=== PATIENT | female | born 1960 | race Caucasian/White ===

== ENCOUNTER 2016-10-14 13:21 | Emergency (ER) | payer OTHER ==
[~2016-10-14] VITALS: Ht 160 cm; Wt 52.2 kg
--- NOTE | ~2016-10-14 | EKG ---
[place] [address] [employer] [place] [address] ELECTROCARDIOGRAM REPORT Name: NITZA GRAY Room #: DEP SHILO Yuen#: [id number] Admission: 10/14/16 Attend Phys: Discharge: 10/14/16 Date of : 62 Report #: [id number] THIS REPORT FOR: //name// [facility] ED Test Date: 2016-10-14 Test Time: 13:59:43 Pat Name: NITZA GRAY Department: Room: Gender: F Type Photography Supervisor: MZOOK : 1960 Requested By: Jose Carlos Rao Order Number: [id number] MD: Bill Will Measurements Intervals [place] Rate: 110 P: 68 HI: 121 QRS: -47 QRSD: 79 T: 80 QT: 356 QTc: 482 Interpretive Statements Sinus tachycardia Left anterior fascicular block Possible inferior infarct, old Compared to ECG 06/29/2016 13:44:42 No significant change was found Electronically Signed On 10-15-2016 8:55:49 STAFF REPORTER by Bill Will [email or web address] <ELECTRONICALLY SIGNED> By: Bill Will MD, [facility] 10/15/16 0855 1359 1359 Bill Will MD, FAC /EPI
[~2016-10-14 13:21] MED LIST: ABILIFY 5 MG TAB5 M1 PO; ADVAIR 250-501 EACH IH; ALBUTEROL INH; ALPRAZOLAM 0.0.25 M1 PO; ATIVAN1 MG PO; BACTRIM DS TAB1 EACH PO; BUSPAR 5 MG TABL5 M1 PO; BUTALB-ACETAMI1 EACH PO; CARAFATE 1 GM TA1 G1 PO; CLONAZEPAM; CLONAZEPAM 0.50.5 M1 PO; COMBIVENT INH; CONSTULOSE10 GM/152 PO; DEPAKOTE; DEPAKOTE 250MG250 M1 PO; DEPAKOTE ER500 MG PO; DESYREL100 MG PO; DESYREL150 MG; DESYREL150 MG PO; DIAZEPAM 5 MG5 M1 PO; DICLOFENAC SODI75 M2 PO; FIORICET-COD 31 EACH; FLAGYL500 MG PO; FOLIC ACID1 MG PO; HCTZ PO; HYDROCHLOROTHIA25 M1 PO; HYDROCODON-ACE1 EACH PO; IBUPROFEN 600600 M1 PO; K-DUR 20 MEQ T20 MEQ PO; LACTULOSE10 GM/152 PO; LEG-GESIC MULT473 ML; LIDODERM 5%1 PATCH TOP; LISINOPRIL20 MG PO; LOPRESSOR25 PO; LORAZEPAM 1 MG T1 MG PO; MAG-OX 400 TAB400 M1 PO; MAGNESIUM OXID200 MG PO; MOTION RELIEF25 MG PO; MULTIVITAMINS PO; NOHOMEMEDICATIONS; NON-ASPIRIN PA325 MG PO; NORCO 5-325 TA1 EACH PO; PAIN & FEVER325 MG PO; PHENERGAN 25 MG25 M1 PO; POTASSIUM20 PO; PRENATAL VITAM1 EACH PO; PRILOSEC 10MG C10 MG PO; PRILOSEC 20 MG20 MG PO; PRILOSEC40 MG PO; PRISTIQ100 MG PO; PROPRANOLOL 1010 MG PO; PT UNSURE OF MEDS; REMERON15 MG PO; RISPERIDONE 1 MG1 MG PO; TRAZODONE HCL100 MG PO; TRAZODONE HCL50 MG PO; TRAZODONE PO; VITAMIN B-1100 M1 PO; XANAX 0.25 MG0.25 MG; ZANTAC 150MG T150 M1 PO; ZOFRAN 4 MG ORAL4 MG PO; ZOFRAN ODT4 MG PO
[2016-10-14 14:11] LABS: ABSOLUTE NEUTROPHILS 2.4 thou/uL (1.4-8.2); BASOPHILS 0.9 % (0.0-2.0); EOSINOPHILS 1.5 % (0.0-3.0); HEMATOCRIT 43.3 % (37.0-47.0); HEMOGLOBIN 14.8 gm/dL (12.0-15.0); LYMPHOCYTES 51.7 % (24.0-44.0); MCH 32.6 pg (26.0-34.0); MCHC 34.2 % (28.0-37.0); MCV 95.3 fL (80.0-100.0); MONOCYTES 3.6 % (1.0-8.0); PLATELET COUNT 274 thou/uL (150-400); POLYS 42.3 % (36.0-66.0); RBC 4.55 mil/uL (4.20-5.00); RDW 14.3 % (10.5-14.5); WBC 5.8 thou/uL (4.0-11.0)
[2016-10-14 14:13] LABS: MANUAL DIFF NO
[2016-10-14 14:17] LABS: URINE BILIRUBIN NEGATIVE (Negative); URINE BLOOD TRACE (Negative); URINE COLOR YELLOW; URINE GLUCOSE-RANDOM* NEGATIVE (Negative); URINE KETONES NEGATIVE (Negative); URINE LEUKOCYTES-REFLEX 1+ (Negative); URINE PROTEIN (DIPSTICK) NEGATIVE (Negative); URINE UROBILINOGEN 0.2 E.U./dl (0.2-1.0)
[2016-10-14 14:20] LABS: CREATININE 0.5 mg/dL (0.6-1.3); POTASSIUM 3.2 mmol/L (3.5-5.1)
[2016-10-14 14:22] LABS: INR 1.1; PROTIME 11.4 Seconds (9.3-11.4)
[2016-10-14 14:25] LABS: AMP/METHAMP Negative (Negative); BARBITURATES Negative (Negative); BENZODIAZEPINES Negative (Negative); COCAINE Negative (Negative); METHADONE Negative (Negative); OPIATES Negative (Negative); PCP Negative (Negative); THC POSITIVE (Negative)
[2016-10-14 14:26] LABS: ALBUMIN 2.6 g/dL (3.4-5.0); TOTAL BILIRUBIN 0.2 mg/dL (<0.1-1.0); TOTAL PROTEIN 7.2 g/dL (6.4-8.2)
[2016-10-14 14:47] LABS: CASTS None Seen /LPF (None Seen); CRYSTALS None Seen /LPF (None Seen); SQUAMOUS 0-3 Few /LPF (0-3); URINE WBC-REFLEX 0-5 Rare /HPF (0-5)
[2016-10-14 14:48] LABS: URINE RBC None Seen /HPF (0-2)
[2016-10-14] MEDS ORDERED: PHENERGAN 25 MG25 M1 PO (14:59)
[2016-10-14] MEDS ORDERED: MACROBID 100 M100 M2 PO (16:33)
[2016-10-14] MEDS ORDERED: ATIVAN2 MG PO (16:56)
== END 2016-10-14 17:08 | disposition home or self-care (01) ==
LOC: ER 13:21
PROVIDERS: Physician Assistant
DX: F10.220 Alcohol dependence with intoxication, uncomplicated (principal); E87.6 Hypokalemia; E83.42 Hypomagnesemia; R11.2 Nausea with vomiting, unspecified; N39.0 Urinary tract infection, site not specified; F12.10 Cannabis abuse, uncomplicated; I10 Essential (primary) hypertension; J44.9 Chronic obstructive pulmonary disease, unspecified; F31.9 Bipolar disorder, unspecified; F17.210 Nicotine dependence, cigarettes, uncomplicated; Z98.890 Other specified postprocedural states

== ENCOUNTER 2016-10-19 16:37 | Emergency (ER) | payer OTHER ==
[~2016-10-19] VITALS: Ht 162.6 cm; Wt 51.3 kg
[~2016-10-19 16:37] MED LIST changes: +ATIVAN2 MG PO; +MACROBID 100 M100 M2 PO
[2016-10-19 17:28] LABS: CALCIUM 8.6 mg/dL (8.5-10.1); CREATININE 0.5 mg/dL (0.6-1.3)
[2016-10-19 17:34] LABS: ALBUMIN 3.2 g/dL (3.4-5.0); TOTAL BILIRUBIN 0.7 mg/dL (<0.1-1.0); TOTAL PROTEIN 8.7 g/dL (6.4-8.2)
[2016-10-19 17:50] LABS: BASOPHILS 1.1 % (0.0-2.0); EOSINOPHILS 0.3 % (0.0-3.0); HEMATOCRIT 48.6 % (37.0-47.0); HEMOGLOBIN 16.8 gm/dL (12.0-15.0); MCH 32.7 pg (26.0-34.0); MCHC 34.6 % (28.0-37.0); MCV 94.4 fL (80.0-100.0); MONOCYTES 3.3 % (1.0-8.0); PLATELET COUNT 195 thou/uL (150-400); POLYS 57.3 % (36.0-66.0); RBC 5.15 mil/uL (4.20-5.00); RDW 14.2 % (10.5-14.5); WBC 5.2 thou/uL (4.0-11.0)
[2016-10-19 18:03] LABS: MANUAL DIFF NO
== END 2016-10-19 18:35 | disposition home or self-care (01) ==
LOC: ER 16:37
PROVIDERS: Physician Assistant
DX: F10.10 Alcohol abuse, uncomplicated (principal); R94.5 Abnormal results of liver function studies; R11.2 Nausea with vomiting, unspecified; F31.9 Bipolar disorder, unspecified; I10 Essential (primary) hypertension; J44.9 Chronic obstructive pulmonary disease, unspecified; M10.9 Gout, unspecified; F12.10 Cannabis abuse, uncomplicated; F17.210 Nicotine dependence, cigarettes, uncomplicated; F15.10 Other stimulant abuse, uncomplicated; Z86.19 Personal history of other infectious and parasitic diseases; Z98.890 Other specified postprocedural states; Y90.8 Blood alcohol level of 240 mg/100 ml or more

== ENCOUNTER 2018-03-22 08:54 | Inpatient (IN) | payer OTHER ==
[~2018-03-22] VITALS: Ht 152.4 cm; Wt 45.0 kg
--- NOTE | ~2018-03-22 | P ---
[facility] [place] [address] PROCEDURE REPORT Name: NITZA GRAY Room #: 206-P [facility] IN M.R.#: [id number] Admission: 03/22/18 Attend Phys: Fuad Garcia MD Discharge: 03/25/18 Date of : 62 Report #: [id number] THIS REPORT FOR: //name// CC: JONO physician/PCP FAM unknown Fuad Garcia MD DATE OF SERVICE: 03/23/2018 PROCEDURE PERFORMED: Upper endoscopy with biopsies. HISTORY OF PRESENT ILLNESS: The patient is a 57-year-old female with a history of nausea, vomiting and mid epigastric abdominal pain. She has a history of alcohol abuse as well as hepatitis C. On admission, liver function tests have been elevated. A CT scan of the abdomen and pelvis showed a thickening in the distal esophagus. The patient apparently takes Tums on a p.r.n. basis. She denies any dysphagia. She denies any bleeding. DESCRIPTION OF PROCEDURE: The risks and benefits of the procedure were explained to the patient, those risks including but not limited to bleeding, perforation, the risk of sedation. She understood these risks and gave informed consent. Sedation was given using propofol per Anesthesia. Next, using a standard Olympus upper endoscope, the scope was placed in the patient's mouth and advanced under direct vision through the esophagus, stomach and into the second portion of the duodenum. The larynx was normal in appearance. The upper and mid esophagus was normal in appearance. In the distal esophagus, mild grade A erosive esophagitis was noted. No masses were noted, no varices. In the stomach, a mild gastritis was noted. No evidence of ulcerations or erosions. Biopsies were obtained to rule out H. pylori. The pylorus was normal and patent. There was a fair amount of fluid retained within the stomach. This was aspirated away. The duodenal bulb, first and second portion were all normal. The scope was then withdrawn and the procedure terminated. The patient tolerated the procedure well. IMPRESSION: 1. Mild grade A erosive esophagitis. 2. Mild gastritis. 3. Fluid retention in the stomach, may reflect gastroparesis. RECOMMENDATIONS: 1. Await biopsy results. 2. Continue PPI therapy. 3. We will start clear liquids as tolerated today. If the patient has ongoing symptoms, consider gastric emptying study. [address] [address] PROCEDURE REPORT Name: NITZA GRAY Room #: [address] [place] [address] [place] ..#: [id number] Admission: 03/22/18 Attend Phys: Fuad Garcia MD Discharge: 03/25/18 Date of : 62 Report #: [id number] Thank you for allowing me to participate in her care. <ELECTRONICALLY SIGNED> By: Zane Le MD 03/27/18 1538 1133 1650 Zane Le MD /nt
--- NOTE | ~2018-03-22 | PATH ---
[facility] [address] [place] [address] PATHOLOGY RPT PROCEDURE Name: NITZA GRAY Room #: 206-P [facility] IN M.R.#: [id number] Admission: 03/22/18 Date of : 62 Discharge: 03/25/18 Report #: [id number] Path Case #: [id number] [facility] Accession Number: [id number] . 01 Material submitted: . BIOPSY OF GASTRITIS . 01 Clinical history: . Nausea, vomiting Gastritis, nausea, vomiting Rule out H. pylori . 02 Diagnosis: Gastric mucosa, gastritis, endoscopic biopsy: - Mild reactive gastropathy. - Negative for intestinal metaplasia or atrophy. - Negative for Helicobacter pylori (properly controlled immunohistochemical stain performed). (IUV:pit; 03/24/2018) . QTP/03/24/2018 . 02 Electronically signed: . Chyna Yap MD, Pathologist NPI- [id number] . 01 Gross description: . The specimen is received in formalin, labeled "Malik Nitza, BX of gastritis" and consists of 3 fragments of pink-frances soft tissue measuring between 0.2 x 0.2 x 0.1 cm and 0.8 x 0.3 x 0.1 cm. They are entirely submitted in A1. (SDY; 03/23/2018) SYU/SYU . 02 Pathologist provided ICD-10: K31.9 . 02 CPT . 132500, [id number] Performed at: [address], [place] [id number] MD Antwon Renee MD Phone: [phone] Performed at: [address] [id number] MD Chyna Yap MD Phone: [phone]
[2018-03-22 09:00] VITALS: BP 137/84
[2018-03-22 10:48] LABS: ABSOLUTE NEUTROPHILS 2.3 thou/uL (1.4-8.2); BASOPHILS 2.2 % (0.0-2.0); EOSINOPHILS 0.9 % (0.0-3.0); HEMATOCRIT 45.9 % (37.0-47.0); HEMOGLOBIN 15.8 gm/dL (12.0-15.0); MCH 31.5 pg (26.0-34.0); MCHC 34.4 g/dL (28.0-37.0); MCV 91.7 fL (80.0-100.0); MONOCYTES 6.2 % (1.0-8.0); PLATELET COUNT 266 thou/uL (150-400); POLYS 45.7 % (36.0-66.0); RBC 5.01 mil/uL (4.20-5.00); RDW 14.8 % (10.5-14.5)
[2018-03-22 10:56] LABS: CALCIUM 8.8 mg/dL (8.5-10.1); CREATININE 0.6 mg/dL (0.6-1.0); POTASSIUM 3.2 mmol/L (3.5-5.1)
[2018-03-22 11:09] LABS: ALBUMIN 3.3 g/dL (3.4-5.0); DIRECT BILIRUBIN 0.2 mg/dL (<0.1-0.3); TOTAL BILIRUBIN 0.3 mg/dL (<0.1-1.0); TOTAL PROTEIN 8.4 g/dL (6.4-8.2)
[2018-03-22 14:10] LABS: MAGNESIUM 1.4 mg/dL (1.8-2.4); PHOSPHORUS 2.5 mg/dL (2.5-4.9)
[2018-03-22 15:03] LABS: AMP/METHAMP Negative (Negative); BARBITURATES POSITIVE (Negative); BENZODIAZEPINES Negative (Negative); COCAINE Negative (Negative); METHADONE Negative (Negative); OPIATES POSITIVE (Negative); PCP Negative (Negative)
[2018-03-22 15:06] VITALS: BP 141/93
[2018-03-22 15:28] LABS: FOLIC ACID 13.8 ng/mL (8.6-58.9)
[2018-03-22 16:16] VITALS: BP 141/93
[2018-03-22 17:05] VITALS: BP 140/95
[2018-03-22 19:53] VITALS: BP 140/77
[2018-03-23 00:09] VITALS: BP 146/93
[2018-03-23 03:14] LABS: MCH 31.5 pg (26.0-34.0); MCHC 34.5 g/dL (28.0-37.0); MCV 91.4 fL (80.0-100.0); RBC 4.16 mil/uL (4.20-5.00); RDW 14.6 % (10.5-14.5); WBC 2.8 thou/uL (4.0-11.0)
[2018-03-23 03:26] LABS: HEMOGLOBIN 13.1 gm/dL (12.0-15.0)
[2018-03-23 03:28] VITALS: BP 150/96
[2018-03-23 03:30] LABS: ALBUMIN 2.5 g/dL (3.4-5.0); CALCIUM 7.2 mg/dL (8.5-10.1); CREATININE 0.5 mg/dL (0.6-1.0); POTASSIUM 3.6 mmol/L (3.5-5.1); TOTAL BILIRUBIN 0.5 mg/dL (<0.1-1.0); TOTAL PROTEIN 6.5 g/dL (6.4-8.2)
[2018-03-23 07:35] VITALS: BP 147/101
[2018-03-23 12:25] VITALS: BP 141/88
[2018-03-23 15:55] VITALS: BP 152/97
[2018-03-23 20:21] VITALS: BP 146/88
[2018-03-24 04:18] LABS: CALCIUM 7.7 mg/dL (8.5-10.1); CREATININE 0.6 mg/dL (0.6-1.0); MAGNESIUM 1.3 mg/dL (1.8-2.4)
[2018-03-24 04:27] LABS: POTASSIUM 3.8 mmol/L (3.5-5.1)
[2018-03-24 04:37] LABS: HEMATOCRIT 40.8 % (37.0-47.0); HEMOGLOBIN 13.9 gm/dL (12.0-15.0); MCH 31.5 pg (26.0-34.0); MCHC 34.1 g/dL (28.0-37.0); MCV 92.3 fL (80.0-100.0); RBC 4.42 mil/uL (4.20-5.00); RDW 14.8 % (10.5-14.5); WBC 2.3 thou/uL (4.0-11.0)
[2018-03-24 04:58] VITALS: BP 152/79
[2018-03-24 08:00] VITALS: BP 158/101
[2018-03-24 11:25] VITALS: BP 176/99
[2018-03-24 15:45] VITALS: BP 149/96
[2018-03-24 20:15] VITALS: BP 156/93
[2018-03-25 05:12] VITALS: BP 141/83
[2018-03-25 06:23] LABS: ALBUMIN 2.7 g/dL (3.4-5.0); DIRECT BILIRUBIN 0.4 mg/dL (<0.1-0.3); TOTAL BILIRUBIN 0.7 mg/dL (<0.1-1.0); TOTAL PROTEIN 6.5 g/dL (6.4-8.2)
[2018-03-25 07:48] VITALS: BP 159/85
[2018-03-25 11:24] VITALS: BP 159/85
== END 2018-03-25 10:38 | disposition left against medical advice (07) | DRG 380 ==
LOC: ER 08:54 → EROBS 13:37 → 2N 13:37 → ENTRNSPT 03-25 10:27 → EDTRNSPTSTS 03-25 10:29 → 2N 03-25 10:38
PROVIDERS: Emergency Medicine; Hospitalist; Nurse Practitioner
PROC: 0DB68ZX Excision of Stomach, Via Natural or Artificial Opening Endoscopic, Diagnostic (ICD-10-PCS; principal; 2018-03-23)
DX: K22.10 Ulcer of esophagus without bleeding (principal); G92 Toxic encephalopathy; F10.239 Alcohol dependence with withdrawal, unspecified; E46 Unspecified protein-calorie malnutrition; F10.229 Alcohol dependence with intoxication, unspecified; K29.70 Gastritis, unspecified, without bleeding; K70.10 Alcoholic hepatitis without ascites; E05.90 Thyrotoxicosis, unspecified without thyrotoxic crisis or storm; B18.2 Chronic viral hepatitis C; K31.9 Disease of stomach and duodenum, unspecified; E16.2 Hypoglycemia, unspecified; D72.819 Decreased white blood cell count, unspecified; R51 Headache; F12.10 Cannabis abuse, uncomplicated; F31.9 Bipolar disorder, unspecified; J44.9 Chronic obstructive pulmonary disease, unspecified; K21.0 Gastro-esophageal reflux disease with esophagitis
CPT/HCPCS: 10081; 62110; 62900; 70005

== ENCOUNTER 2018-11-08 05:57 | Inpatient (IN) | payer OTHER ==
[~2018-11-08] VITALS: Ht 152.4 cm; Wt 49.3 kg
--- NOTE | ~2018-11-08 | HC ---
[facility] [place] [address] CONSULTATION Name: NITZA GRAY Room #: 238-P [facility] IN M..#: [id number] Admission: 11/08/18 Attend Phys: Ulises Caicedo MD Discharge: Date of : 62 Report #: [id number] THIS REPORT FOR: //name// CC: JONO physician/PCP Ulises Caicedo DATE OF SERVICE: 11/09/2018 HISTORY OF PRESENT ILLNESS: This lady was admitted with alcohol intoxication and other systemic complaints. She notes that she got some disturbing news that her son is going to spend 18 years in [place]. She found this out about a month ago and greatly regrets that she drank alcohol on 2 occasions since that time. Prior to that, after a long history of alcohol use disorder, she had actually maintained sobriety it sounds like for a number of months or longer. She notes that she has been going to a couple of groups near where she lives and is planning to start treatment for hepatitis C and has been utilizing an appropriate support system. She has been bothered by anxiety, sweating and headaches. PAST PSYCHIATRIC HISTORY: There is a long history of depression, anxiety and alcohol use disorder. She sees . ALLERGIES: No known medication allergies. CURRENT MEDICATIONS: Include vitamin B 100 daily, vitamin daily, famotidine 20 twice daily, Ativan detox, Dilaudid p.r.n., Zofran p.r.n. PAST MEDICAL HISTORY: Hepatitis C, other secondary to alcohol use disorder. MENTAL STATUS EXAM: female, casually dressed, ectomorphic build, stable mood, some restriction of affect. She is anxious, normal rate, rhythm, and speech. She is articulate. No suicidal ideation, homicidal ideation, no hallucinations, no delusions. Insight and judgment fair. DIAGNOSES: 1. Major depressive disorder, recurrent, severe. 2. Anxiety, not otherwise specified. RECOMMENDATIONS: Can perhaps look at gabapentin for anxiety. This may also help with some of her somatic complaints. It is possible that the cannabis use as mentioned in the hospitalist note could play a role in the hyperemesis syndrome. The patient has talked about a capsule she was taking several times a day and thought that this was a generic for quetiapine, I was not aware that quetiapine came in a generic capsule and wondered if this was either Lyrica or hydroxyzine. [facility] [address] [place] [address] CONSULTATION Name: NITZA GRAY Room #: 238-P [facility] IN .R.#: [id number] Admission: 11/08/18 Attend Phys: Ulises Caicedo MD Discharge: Date of : 62 Report #: [id number] The patient may not require any medication for alcohol craving. In fact, having only used alcohol on 2 occasions the month after getting such troubling news about her son suggest that she has been using many coping skills to her advantage to provide supportive therapy. By: [id number] Hugo Mcmullen MD /sam
[2018-11-08 05:59] VITALS: BP 120/81
--- NOTE | 2018-11-08 06:28 | NUR ---
WHEN PT WAS INSTRUCTED TO PEE IN A CUP TO GIVE URINE SAMPLE PT WAS AGREEABLE THEN PT CAME OUT OF THE BATHROOM AND STATED "OOPSS I FORGOT". PT URINATED WITHOUT ATTEMPTING TO GIVE URINE SAMPLE. DR. HER AWARE OF PT'S UNWILLING TO GIVE URINE SAMPLE
--- NOTE | 2018-11-08 06:43 | NUR ---
MULTIPLE FAILED ATTEMPTS TO START IV AND GET BLOOD. LAB CALLED FOR HELP AND THEY WILL SEND SOMEONE TO DRAW SOON. AWARE
[2018-11-08 07:02] LABS: HEMOGLOBIN 15.2 gm/dL (12.0-15.0); MCH 31.2 pg (26.0-34.0); MCHC 33.8 g/dL (28.0-37.0); MCV 92.2 fL (80.0-100.0); PLATELET COUNT 262 thou/uL (150-400); RBC 4.88 mil/uL (4.20-5.00); RDW 14.8 % (10.5-14.5); WBC 4.3 thou/uL (4.0-11.0)
[2018-11-08 07:08] LABS: CALCIUM 9.2 mg/dL (8.5-10.1); CREATININE 0.5 mg/dL (0.6-1.0); POTASSIUM 3.7 mmol/L (3.5-5.1)
[2018-11-08 07:14] LABS: ALBUMIN 3.2 g/dL (3.4-5.0); DIRECT BILIRUBIN 0.1 mg/dL (<0.1-0.3); MAGNESIUM 1.1 mg/dL (1.8-2.4); PHOSPHORUS 4.9 mg/dL (2.5-4.9); TOTAL BILIRUBIN 0.2 mg/dL (<0.1-1.0); TOTAL PROTEIN 8.3 g/dL (6.4-8.2)
[2018-11-08 07:26] LABS: ABSOLUTE NEUTROPHILS 1.8 thou/uL (1.4-8.2); PLATELET ESTIMATE NORMAL
[2018-11-08 08:32] LABS: URINE BILIRUBIN NEGATIVE (Negative); URINE BLOOD NEGATIVE (Negative); URINE CLARITY CLEAR; URINE COLOR YELLOW; URINE GLUCOSE-RANDOM* NEGATIVE (Negative); URINE KETONES NEGATIVE (Negative); URINE LEUKOCYTES-REFLEX NEGATIVE (Negative); URINE NITRITE-REFLEX NEGATIVE (Negative); URINE PROTEIN (DIPSTICK) NEGATIVE (Negative); URINE UROBILINOGEN 0.2 E.U./dl (0.2-1.0)
[2018-11-08 08:38] LABS: AMP/METHAMP Negative (Negative); BARBITURATES Negative (Negative); BENZODIAZEPINES Negative (Negative); COCAINE Negative (Negative); METHADONE Negative (Negative); OPIATES Negative (Negative); PCP Negative (Negative)
[2018-11-08 11:11] VITALS: BP 139/91
[2018-11-08 12:11] VITALS: BP 141/74
[2018-11-08 12:15] VITALS: BP 141/84
[2018-11-08 12:31] LABS: CALCIUM 9.2 mg/dL (8.5-10.1); CREATININE 0.6 mg/dL (0.6-1.0); POTASSIUM 3.9 mmol/L (3.5-5.1)
[2018-11-08] MEDS ORDERED: SEROQUEL 50 MG50 MG PO (12:32)
[2018-11-08] MEDS ORDERED: TRAZODONE HCL100 MG PO (12:33)
[2018-11-08 12:37] LABS: ALBUMIN 3.2 g/dL (3.4-5.0); TOTAL BILIRUBIN 0.1 mg/dL (<0.1-1.0); TOTAL PROTEIN 8.3 g/dL (6.4-8.2)
[2018-11-08 16:00] VITALS: BP 143/86
--- NOTE | 2018-11-08 17:27 | NUR ---
ASSUMED CARE OF PATIENT 1230 FROM ER. PATIENT IS VISIBLY AGGITATED AND COMPLAINS OF ANXIETY, NAUSEA AND VOMITING. PATIENT STARTED ON IV FLUIDS, THIAMINE AND CAWA PROTOCOL IMMEDIATELY UPON ARRIVING TO THE FLOOR. MEDICATION RECONCILIATION WAS COMPLETED. PATIENT IS RESTING COMFORTABLY WITH CALL LIGHT WITHIN REACH.
--- NOTE | 2018-11-08 17:30 | NUR ---
PATIENT ER TRANSFER AT 1230. PATIENT SLEEPING FROM LORA[place]PAM AND DECREASED ANXIETY. PATIENT'S SECOND CAWA AT 1338 WAS A ZERO BECAUSE PATIENT WAS SLEEPING, 1531 WAS AN 8 AND PATIENT WAS MEDICATED APPROPRIATELY. PATIENT WAS NOT GIVEN ANY WATER/ICE/CLEAR LIQUIDS ON MY SHIFT AND HAD NO EMESIS. SHE IS RESTING COMFORTABLY AND IN NO DISCOMFORT. PATIENT'S CALL LIGHT WITHIN REACH. PATIENT WILL CONTINUE TO FOLLOW POC.
[2018-11-08 20:48] VITALS: BP 150/99
[2018-11-09] VITALS (17 sets, daily range): BP systolic 118–161; BP diastolic 60–96
--- NOTE | 2018-11-09 03:51 | NUR ---
ASSUMED CARE 1900. VSS. ASSESSMENT CHARTED. PT C/O NAUSEA, AGITAITION, AND SHAKINESS CONTROLED WITH PRN ATIVAN PER, CIWAH PROTOCOL. CLEAR LIQUID DIET, PT HAS TOLERATED SMALL SIPS OF WATER. FLUIDS RUNNING PER EMAR. PLAN FOR LABS THIS AM WILL CONTINUE TO MONITOR AND WITH POC.
[2018-11-09 04:07] LABS: HEMATOCRIT 41.4 % (37.0-47.0); HEMOGLOBIN 13.8 gm/dL (12.0-15.0); MCHC 33.3 g/dL (28.0-37.0); MCV 93.2 fL (80.0-100.0); RBC 4.45 mil/uL (4.20-5.00); RDW 14.6 % (10.5-14.5); WBC 3.5 thou/uL (4.0-11.0)
[2018-11-09 04:27] LABS: CALCIUM 8.2 mg/dL (8.5-10.1); CREATININE 0.5 mg/dL (0.6-1.0); MAGNESIUM 1.5 mg/dL (1.8-2.4); POTASSIUM 3.7 mmol/L (3.5-5.1)
[2018-11-09 10:52] LABS: ALBUMIN 2.8 g/dL (3.4-5.0); DIRECT BILIRUBIN 0.3 mg/dL (<0.1-0.3); TOTAL BILIRUBIN 0.7 mg/dL (<0.1-1.0); TOTAL PROTEIN 6.9 g/dL (6.4-8.2)
--- NOTE | 2018-11-09 15:53 | NUR ---
RECENT ETOH WITHDRAWAL ASSESSMENT COMPLETED ON PT, SCORE INCREASING, PT NOT FEELING ANY RELIEF FROM MEDICATIONS. ASKED CHARGE NURSE TO ASSESS FOR SECOND OPINION. CHARGE NURSE ASSESSED PT AND HAD 26 SCORE ON CIWA. PROVIDER INFORMED, ORDERS RECEIVED FOR TRANSFER. PT TRANSFERRING TO ICU ROOM 238. REPORT GIVEN TO LILLIAN ON ICU AT APPROX 1600.
--- NOTE | 2018-11-09 16:01 | NUR ---
attempted to meet with patient but she was in process of being transferred to ICU due to high CIWA score. Casemgt to follow
--- NOTE | 2018-11-09 17:39 | NUR ---
PATIENT TRANSFERRED FROM CCU AT 1625, ALERT AND ORIENTED X4, SINUS RHYTHM ON EXCEPTIONAL STUDENT EDUCATION TEACHER. UP WITH STANDBY ASSISTANCE, COMPLAINING OF HEADACHE AND NAUSEA MILDLY CONTRILLED WITH MEDICATION, CIWA MONITORED, CURRENT SCORE 19. PATIENT RESTING, NO SIGNS OF ACUTE DISTRESS NOTED AT THIS TIME. WILL CONTINUE TO MONITOR.
[2018-11-10] VITALS (21 sets, daily range): BP systolic 124–159; BP diastolic 81–99
[2018-11-10 04:56] LABS: HEMATOCRIT 39.7 % (37.0-47.0); HEMOGLOBIN 13.9 gm/dL (12.0-15.0); MCH 31.9 pg (26.0-34.0); MCV 91.1 fL (80.0-100.0); RBC 4.36 mil/uL (4.20-5.00); RDW 14.1 % (10.5-14.5); WBC 2.8 thou/uL (4.0-11.0)
--- NOTE | 2018-11-10 05:04 | NUR ---
ASSUMED CARE @ 1900 11/09/18, PT ASSESSMENTS AND VSS COMPLETED PER ICU PROTOCOL, PT INITIAL CIWA SCORE WAS 25, NOW AT 11 WITH THE LAST ASSESSMENT, PT GIVEN ATIVAN PRN APPROX Q2H WITH EACH CIWA ASSESSMENT. PT SR ON THE MONITOR THROUGH OUT THE SHIFT. PT ON RA INITIALLY WHILE AWAKE AND PUT ON 2L OF 02 WHILE ASLEEP, SATS IN THE HIGH 90'S. PT GIVEN ZOFRAN FOR NAUSEA DURING THE SHIFT. PT ABLE TO VOID IN THE TOILET, GOP NOTED. PLAN OF CARE - CONT TO MONITOR AND TREAT WITHDRAWALS ACCORDINGLY.
[2018-11-10 05:09] LABS: CALCIUM 8.2 mg/dL (8.5-10.1); CREATININE 0.5 mg/dL (0.6-1.0); MAGNESIUM 1.4 mg/dL (1.8-2.4); POTASSIUM 3.6 mmol/L (3.5-5.1)
[2018-11-10] MEDS ORDERED: AMBIEN 5 MG TABL5 M1 PO (09:34)
--- NOTE | 2018-11-10 14:16 | NUR ---
CM SSESSMENT: CASE OPENED FOR DC PLANNING. CLINICAL INFO REVIEWED. PT KNOWN TO CM FROM PREVIOUS ADMITS DATING BACK TO 2013. PT ADMIT WITH N/V, ETOH WITHDRAWAL. MET WITH PT WHO IS SOMULENT BUT ORIENTED AND ABLE TO CONVERSE. PT LIVES [place]. ON MEDICAL DISSABILITY. INDEPENDENT WITH ADLS, NO DME. HAS BEEN FOLLOWED AT [facility] FOR YEARS, HAS BENZENE WASHER OPERATOR NAMED PIA. SHE DOES NOT RECALL HIS NUMBER BUT STATED SHE NOTIFIED HIM SHE HAD BEEN ADMITTED. CONFIRMS PREVIOUS INPT AT [facility], [facility] AND [facility]. CONFIRMS STILL GOES TO GROUP MEETINGS MULTIPLE TIMES A WEEK THROUGH [facility]. INDICATES HAS HAD MONTHS OF SOBRIETY BUT WAS TRIGGERED TO USE ETOH BY BAD NEWS ABOUT HER SON. SEEN BY DR. TURCIOS 11/09/18. PRIMARY CARE AT [facility]. PT INDICATES SHE PLANS TO RESUME GROUP MEETINGS AND REACH OUT TO BENZENE WASHER OPERATOR AT [facility]. PROVIDED ETOH RESOURES ON DC SUMMARY.
--- NOTE | 2018-11-10 19:03 | NUR ---
PATIENT ALERT AND ORIENTED X4, PAIN MILDLY CONTROLLED WITH MEDICATION. COMPLAINING OF HEADACHES. SINUS RHYTHM ON HEALTHCARE LIAISON. ON ROOM AIR. TOLERATING REGULAR DIET. UP WITH STANDBY ASSISTANCE. CIWA MONITORED, SCORE OF 6. NO SIGNS OF ACUTE DISTRESS NOTED AT THIS TIME. WILL CONTINUE TO MONITOR.
[2018-11-11] VITALS: BP 148/86
[2018-11-11 04:00] VITALS: BP 128/84
[2018-11-11 05:32] LABS: HEMATOCRIT 44.2 % (37.0-47.0); HEMOGLOBIN 14.8 gm/dL (12.0-15.0); MCH 30.7 pg (26.0-34.0); MCHC 33.4 g/dL (28.0-37.0); MCV 91.8 fL (80.0-100.0); RBC 4.81 mil/uL (4.20-5.00); RDW 14.3 % (10.5-14.5); WBC 2.8 thou/uL (4.0-11.0)
[2018-11-11 05:44] LABS: CALCIUM 8.9 mg/dL (8.5-10.1); CREATININE 0.6 mg/dL (0.6-1.0); MAGNESIUM 1.4 mg/dL (1.8-2.4); POTASSIUM 3.9 mmol/L (3.5-5.1)
--- NOTE | 2018-11-11 06:05 | NUR ---
ASSUMED CARE @ 1900 11/10/18, PT ASSESSMENTS AND VSS COMPLETED PER CCU ORDERS, PT GIVEN ATIVAN DURING THE SHIFT FOR CIWA MONITORING. PT IN SR, NO EDEMA NOTED. PT ON RA WHILE AWAKE BUT ON 2L WHILE ASLEEP, SATS IN THE HIGH 90'S. PT IS A STANDBY ASSIST, PT ABLE TO WALK TO THE TOILET, GOP NOTED. PT ASSISTED WITH A BATH NO COMPLICATIONS NOTED. PT HAD AN UNEVENTFUL NIGHT. PLAN OF CARE- CONT TO MONITOR.
[2018-11-11 08:01] VITALS: BP 141/87
--- NOTE | 2018-11-11 11:28 | NUR ---
ASSUMED CARE OF PT AT 0700 THIS SHIFT. PT HAS BEEN COOPERATIVE, HAS HAD A SLIGHT HEADACHE AND SOME NAUSEA, HOWEVER WAS ABLE TO EAT BREAKFAST. PT'S MAGNESIUM HAS BEEN DROPPING, CURRENTLY ON ELECTROLYTE REPLACEMENT. PT WAS SEEN BY PHYSICIAN THIS MORNING, AND IS WANTING TO GO HOME TODAY. PT HAS NOT HAD VISITORS, EDUCATION WAS PROVIDED. PLAN OF CARE IS TO DISCHARGE PT THIS SHIFT.
[2018-11-11] MEDS ORDERED: PROTONIX40 M1 PO (14:22)
[2018-11-11] MEDS ORDERED: VITAMIN B-1100 M2 PO (14:22)
[2018-11-11] MEDS ORDERED: ONDANSETRON HCL4 M2 PO (14:23)
[2018-11-11 14:34] VITALS: BP 141/87
[2018-11-11] MEDS ORDERED: TRAZODONE HCL100 MG PO (14:36)
[2018-11-11] MEDS ORDERED: SEROQUEL 50 MG50 MG PO (14:36)
[2018-11-11] MEDS ORDERED: NEURONTIN 300300 M1 PO (14:36)
--- NOTE | 2018-11-11 16:22 | NUR ---
PLANS FOR DC HOME TODAY WITH VOUCHED CAB RIDE HOME. SCRIPTS FILLED AT [facility] WITH CM VOUCHING FOR COPAY PT STATES NO MONEY. TIMBER DEADENER UDPATED.
[2018-11-11 17:22] VITALS: BP 141/87
== END 2018-11-11 17:27 | disposition home or self-care (01) | DRG 391 ==
LOC: ER 05:57 → EROBS 09:51 → 2N 09:51 → ICU 11-09 16:20 → ENTRNSPT 11-11 16:59 → ICU 11-11 17:27
PROVIDERS: Emergency Medicine; ADMIT Internal Medicine
DX: K29.20 Alcoholic gastritis without bleeding (principal); E43 Unspecified severe protein-calorie malnutrition; F33.2 Major depressive disorder, recurrent severe without psychotic features; E83.42 Hypomagnesemia; R74.0 Nonspecific elevation of levels of transaminase and lactic acid dehydrogenase [LDH]; B19.20 Unspecified viral hepatitis C without hepatic coma; F12.188 Cannabis abuse with other cannabis-induced disorder; I10 Essential (primary) hypertension; J44.9 Chronic obstructive pulmonary disease, unspecified; F10.10 Alcohol abuse, uncomplicated; F41.9 Anxiety disorder, unspecified; M10.9 Gout, unspecified; F17.210 Nicotine dependence, cigarettes, uncomplicated; Z68.21 Body mass index [BMI] 21.0-21.9, adult; Z91.81 History of falling; Z98.891 History of uterine scar from previous surgery; Z79.899 Other long term (current) drug therapy
CPT/HCPCS: 10078; 10081

== ENCOUNTER 2018-11-15 11:36 | Emergency (ER) | payer OTHER ==
[~2018-11-15] VITALS: Ht 152.4 cm; Wt 48.1 kg
[~2018-11-15 11:36] MED LIST changes: +AMBIEN 5 MG TABL5 M1 PO; +NEURONTIN 300300 M1 PO; +ONDANSETRON HCL4 M2 PO; +PROTONIX40 M1 PO; +SEROQUEL 50 MG50 MG PO; +VITAMIN B-1100 M2 PO
[2018-11-15 12:11] LABS: URINE BILIRUBIN NEGATIVE (Negative); URINE BLOOD NEGATIVE (Negative); URINE CLARITY CLEAR; URINE COLOR YELLOW; URINE GLUCOSE-RANDOM* NEGATIVE (Negative); URINE KETONES NEGATIVE (Negative); URINE LEUKOCYTES NEGATIVE (Negative); URINE NITRITE NEGATIVE (Negative); URINE PROTEIN (DIPSTICK) NEGATIVE (Negative); URINE UROBILINOGEN 0.2 E.U./dl (0.2-1.0)
[2018-11-15 12:20] LABS: AMP/METHAMP Negative (Negative); BARBITURATES Negative (Negative); BENZODIAZEPINES Negative (Negative); COCAINE Negative (Negative); METHADONE Negative (Negative); OPIATES Negative (Negative); PCP Negative (Negative)
[2018-11-15 12:35] LABS: ABSOLUTE NEUTROPHILS 1.8 thou/uL (1.4-8.2); EOSINOPHILS 2.2 % (0.0-3.0); HEMATOCRIT 41.6 % (37.0-47.0); HEMOGLOBIN 14.3 gm/dL (12.0-15.0); LYMPHOCYTES 44.4 % (24.0-44.0); MCHC 34.3 g/dL (28.0-37.0); MCV 90.6 fL (80.0-100.0); MONOCYTES 6.3 % (1.0-8.0); PLATELET COUNT 193 thou/uL (150-400); POLYS 46.1 % (36.0-66.0); RBC 4.59 mil/uL (4.20-5.00); RDW 14.5 % (10.5-14.5); WBC 3.8 thou/uL (4.0-11.0)
[2018-11-15 12:43] LABS: CALCIUM 8.8 mg/dL (8.5-10.1); CREATININE 0.6 mg/dL (0.6-1.0); POTASSIUM 3.5 mmol/L (3.5-5.1)
[2018-11-15 12:49] LABS: MAGNESIUM 1.3 mg/dL (1.8-2.4); TOTAL BILIRUBIN 0.2 mg/dL (<0.1-1.0); TOTAL PROTEIN 7.8 g/dL (6.4-8.2)
[2018-11-15 13:51] VITALS: BP 130/76
[2018-11-15] MEDS ORDERED: MAGNESIUM400 MG PO (13:54)
[2018-11-15] MEDS ORDERED: PRILOSEC 20 MG20 MG PO (13:54)
== END 2018-11-15 14:03 | disposition left against medical advice (07) ==
LOC: ER 11:36
PROVIDERS: Physician Assistant
DX: F10.19 Alcohol abuse with unspecified alcohol-induced disorder (principal); Y90.1 Blood alcohol level of 20-39 mg/100 ml; E83.42 Hypomagnesemia; R10.84 Generalized abdominal pain; K75.89 Other specified inflammatory liver diseases; F31.9 Bipolar disorder, unspecified; I10 Essential (primary) hypertension; J44.9 Chronic obstructive pulmonary disease, unspecified; M10.9 Gout, unspecified; F17.210 Nicotine dependence, cigarettes, uncomplicated; Z98.890 Other specified postprocedural states

== ENCOUNTER 2019-07-22 12:54 | Emergency (ER) | payer OTHER ==
[~2019-07-22] VITALS: Ht 152.4 cm; Wt 50.8 kg
[~2019-07-22 12:54] MED LIST changes: +MAGNESIUM400 MG PO
[2019-07-22 14:22] LABS: ABSOLUTE NEUTROPHILS 1.7 thou/uL (1.4-8.2); BASOPHILS 2.2 % (0.0-2.0); EOSINOPHILS 1.2 % (0.0-3.0); HEMATOCRIT 44.8 % (37.0-47.0); HEMOGLOBIN 14.8 gm/dL (12.0-15.0); LYMPHOCYTES 53.6 % (24.0-44.0); MCH 31.1 pg (26.0-34.0); MCHC 33.1 g/dL (28.0-37.0); MCV 93.9 fL (80.0-100.0); MONOCYTES 4.6 % (1.0-8.0); PLATELET COUNT 268 thou/uL (150-400); POLYS 38.4 % (36.0-66.0); RBC 4.77 mil/uL (4.20-5.00); RDW 16.6 % (10.5-14.5); WBC 4.4 thou/uL (4.0-11.0)
[2019-07-22 14:25] LABS: CALCIUM 9.1 mg/dL (8.5-10.1); CREATININE 0.6 mg/dL (0.6-1.0); POTASSIUM 3.8 mmol/L (3.5-5.1)
[2019-07-22 14:29] LABS: URINE BILIRUBIN NEGATIVE (Negative); URINE BLOOD NEGATIVE (Negative); URINE CLARITY CLEAR; URINE COLOR YELLOW; URINE GLUCOSE-RANDOM* NEGATIVE (Negative); URINE KETONES TRACE (Negative); URINE LEUKOCYTES-REFLEX NEGATIVE (Negative); URINE NITRITE-REFLEX NEGATIVE (Negative); URINE PROTEIN (DIPSTICK) TRACE (Negative); URINE UROBILINOGEN 0.2 E.U./dl (0.2-1.0)
[2019-07-22 14:31] LABS: ALBUMIN 3.3 g/dL (3.4-5.0); TOTAL BILIRUBIN 0.2 mg/dL (<0.1-1.0); TOTAL PROTEIN 8.7 g/dL (6.4-8.2)
[2019-07-22 14:58] VITALS: BP 134/89
--- NOTE | 2019-07-23 07:57 | EKG ---
[place] [address] [employer] [place] [address] ELECTROCARDIOGRAM REPORT Name: NITZA GRAY Room #: DEP SHILO Yuen#: [id number] Admission: 07/22/19 Attend Phys: Discharge: 07/22/19 Date of : [birth year] Report #: [id number] THIS REPORT FOR: //name// [facility] ED Test Date: 2019-07-22 Test Time: 13:08:51 Pat Name: NITZA GRAY Department: Room: Gender: F Reliability Technologist: BRIANNA : 1958-11-14 Requested By: Katharine Aviles Order Number: [id number] MD: Bill Will Measurements Intervals [place] Rate: 102 P: 68 [place]: 129 QRS: -47 QRSD: 78 T: 74 QT: 372 QTc: 485 Interpretive Statements Sinus tachycardia Leftward axis Compared to ECG 10/14/2016 13:59:43 No significant change was found Electronically Signed On 07-23-2019 7:56:58 CDT by Bill Will [email or web address] <ELECTRONICALLY SIGNED> By: Bill Will MD, FACC 07/23/19 0756 1308 1308 Bill Will MD, FACC /EPI
== END 2019-07-22 15:34 | disposition home or self-care (01) ==
LOC: ER 12:54 → EDBD 12:54 → ER 15:34
PROVIDERS: Nurse Practitioner Family
DX: F10.129 Alcohol abuse with intoxication, unspecified (principal); E83.42 Hypomagnesemia; R94.5 Abnormal results of liver function studies; I10 Essential (primary) hypertension; J44.9 Chronic obstructive pulmonary disease, unspecified; M10.9 Gout, unspecified; F41.9 Anxiety disorder, unspecified; F31.9 Bipolar disorder, unspecified; F17.210 Nicotine dependence, cigarettes, uncomplicated; Z98.890 Other specified postprocedural states; Y90.8 Blood alcohol level of 240 mg/100 ml or more

== ENCOUNTER 2019-09-24 04:02 | Emergency (ER) | payer OTHER ==
[~2019-09-24] VITALS: Ht 152.4 cm; Wt 50.8 kg
[2019-09-24] MEDS ORDERED: BUSPAR30 MG PO (04:15)
[2019-09-24 05:36] LABS: BASOPHILS 1.7 % (0.0-2.0); EOSINOPHILS 0.9 % (0.0-3.0); HEMATOCRIT 45.2 % (37.0-47.0); HEMOGLOBIN 15.1 gm/dL (12.0-15.0); LYMPHOCYTES 49.1 % (24.0-44.0); MCH 30.6 pg (26.0-34.0); MCHC 33.4 g/dL (28.0-37.0); MCV 91.5 fL (80.0-100.0); MONOCYTES 4.1 % (1.0-8.0); PLATELET COUNT 232 thou/uL (150-400); POLYS 44.2 % (36.0-66.0); RBC 4.94 mil/uL (4.20-5.00); WBC 4.5 thou/uL (4.0-11.0)
[2019-09-24 05:46] LABS: ANION GAP 19 mmol/L (7-16); BUN 9 mg/dL (7-18); CALCIUM 8.8 mg/dL (8.5-10.1); CHLORIDE 102 mmol/L (98-107); CO2 19 mmol/L (21-32); CREATININE 0.6 mg/dL (0.6-1.0); GLUCOSE 61 mg/dL (74-106); POTASSIUM 4.2 mmol/L (3.5-5.1); SODIUM 140 mmol/L (136-145)
[2019-09-24 05:55] LABS: LIPASE 61 U/L (73-393); MAGNESIUM 1.4 mg/dL (1.8-2.4); TROPONIN-I <0.06 ng/mL (<0.06)
[2019-09-24] MEDS ORDERED: ONDANSETRON ODT8 MG PO (06:14)
[2019-09-24] MEDS ORDERED: PRILOSEC OTC20 MG PO (06:14)
[2019-09-24] MEDS ORDERED: MAG-OXIDE400 MG PO (06:24)
--- NOTE | 2019-09-24 08:01 | EKG ---
[address] [place] [address] ELECTROCARDIOGRAM REPORT Name: NITZA GRAY [id number] Admission: 09/24/19 Attend Phys: Discharge: Date of : [birth year] Report #: [id number] THIS REPORT FOR: //name// [facility] ED Test Date: 2019-09-24 Test Time: 04:21:32 Pat Name: NITZA GRAY Department: Room: Gender: F Golf Sales Associate: THOMAS : 1958-11-14 Requested By: Ricky Estrada Order Number: [id number] MD: Bill Will Measurements Intervals [place] Rate: 123 P: 112 [place]: 131 QRS: 231 QRSD: 79 T: 107 QT: 337 QTc: 482 Interpretive Statements Limb lead reversal Sinus tachycardia Leftward axis Inferior infarct, old Compared to ECG 07/22/2019 13:08:51 Limb lead reversal is now present Electronically Signed On 09-24-2019 8:01:35 NUCLEAR POWERPLANT MECHANIC HELPER by Bill Will [email or web address] <ELECTRONICALLY SIGNED> By: Bill Will MD, [facility] 09/24/19 0801 0421 0421 Bill Will MD, FACC /EPI
--- NOTE | 2019-09-24 08:46 | EKG ---
[place] [address] [facility] [place] [address] ELECTROCARDIOGRAM REPORT Name: NITZA GRAY [facility]: [facility] [id number] Admission: 09/24/19 Attend Phys: Discharge: Date of : [birth year] Report #: [id number] THIS REPORT FOR: //name// [facility] ED Test Date: 2019-09-24 Test Time: 08:44:05 Pat Name: NITZA GRAY Department: Room: Gender: F It Help Desk Associate: BRIANNA : 1958-11-14 Requested By: Darrin Cat Order Number: [id number] MD: Dayton Finnegan Measurements Intervals [place] Rate: 130 P: 108 [place]: 120 QRS: 228 QRSD: 74 T: 108 QT: 331 QTc: 487 Interpretive Statements Right and left arm electrode reversal, interpretation assumes no reversal Sinus tachycardia Left atrial enlargement Inferolateral infarct, old Compared to ECG 09/24/2019 04:21:32 Atrial abnormality now present Left-axis deviation no longer present Myocardial infarct finding still present Electronically Signed On 09-24-2019 8:45:57 MEDICAL DEVICE SALES CONSULTANT by Dayton Finnegan [email or web address] <ELECTRONICALLY SIGNED> By: Dayton Finnegan MD 09/24/19 0845 Dayton Finnegan MD /EPI
[2019-09-24 08:55] LABS: URINE BILIRUBIN NEGATIVE (Negative); URINE BLOOD NEGATIVE (Negative); URINE CLARITY CLEAR; URINE COLOR YELLOW; URINE GLUCOSE-RANDOM* NEGATIVE (Negative); URINE KETONES 1+ (Negative); URINE LEUKOCYTES-REFLEX NEGATIVE (Negative); URINE NITRITE-REFLEX NEGATIVE (Negative); URINE PROTEIN (DIPSTICK) TRACE (Negative)
[2019-09-24 09:06] LABS: AMP/METHAMP POSITIVE (Negative); BARBITURATES Negative (Negative); BENZODIAZEPINES Negative (Negative); COCAINE Negative (Negative); METHADONE Negative (Negative); OPIATES Negative (Negative); PCP Negative (Negative)
[2019-09-24 10:47] LABS: CALCIUM 8.3 mg/dL (8.5-10.1); CREATININE 0.6 mg/dL (0.6-1.0); POTASSIUM 3.8 mmol/L (3.5-5.1)
[2019-09-24 11:14] VITALS: BP 128/71
[2019-09-24] MEDS ORDERED: ATIVAN1 M1 PO (11:14)
--- NOTE | 2019-09-25 09:38 | EKG ---
[place] [address] [employer] [facility] [place] [address] ELECTROCARDIOGRAM REPORT Name: NITZA GRAY [facility] [id number] Admission: 09/24/19 Attend Phys: Discharge: 09/24/19 Date of : [birth year] Report #: [id number] THIS REPORT FOR: //name// [facility] ED Test Date: 2019-09-24 Test Time: 09:02:37 Pat Name: NITZA GRAY Department: Room: Gender: F Trolley Collector: BRIANNA : 1958-11-14 Requested By: Darrin Cat Order Number: [id number] MD: Bill Will Measurements Intervals [place] Rate: 133 P: 62 RI: 114 QRS: -48 QRSD: 80 T: 38 QT: 321 QTc: 478 Interpretive Statements Sinus tachycardia Inferior infarct, old Consider anterior infarct Compared to ECG 09/24/2019 08:44:05 No significant changes Electronically Signed On 09-25-2019 9:37:39 HOT DIE PRESS OPERATOR by Bill Will [email or web address] <ELECTRONICALLY SIGNED> By: Bill Will MD, [facility] 09/25/19 0937 1 1 Bill Will MD, FACC /EPI
== END 2019-09-24 11:14 | disposition home or self-care (01) ==
LOC: ER 04:02 → EDBD 04:02 → ER 11:14
PROVIDERS: Emergency Medicine
DX: E86.0 Dehydration (principal); R11.2 Nausea with vomiting, unspecified; F10.10 Alcohol abuse, uncomplicated; E83.42 Hypomagnesemia; F15.10 Other stimulant abuse, uncomplicated; F12.90 Cannabis use, unspecified, uncomplicated; F17.210 Nicotine dependence, cigarettes, uncomplicated; I10 Essential (primary) hypertension; J44.9 Chronic obstructive pulmonary disease, unspecified; M10.9 Gout, unspecified; Z98.890 Other specified postprocedural states; Y90.9 Presence of alcohol in blood, level not specified

== ENCOUNTER 2019-09-26 15:26 | Emergency (ER) | payer OTHER ==
[~2019-09-26] VITALS: Ht 170.2 cm; Wt 50.8 kg
[~2019-09-26 15:26] MED LIST changes: +ATIVAN1 M1 PO; +BUSPAR30 MG PO; +MAG-OXIDE400 MG PO; +ONDANSETRON ODT8 MG PO; +PRILOSEC OTC20 MG PO
[2019-09-26 16:04] LABS: ABSOLUTE NEUTROPHILS 3.2 thou/uL (1.4-8.2); EOSINOPHILS 0.8 % (0.0-3.0); HEMATOCRIT 44.5 % (37.0-47.0); HEMOGLOBIN 15.1 gm/dL (12.0-15.0); LYMPHOCYTES 32.7 % (24.0-44.0); MCH 30.3 pg (26.0-34.0); MCHC 33.9 g/dL (28.0-37.0); MCV 89.4 fL (80.0-100.0); MONOCYTES 4.4 % (1.0-8.0); PLATELET COUNT 185 thou/uL (150-400); POLYS 61.1 % (36.0-66.0); RBC 4.97 mil/uL (4.20-5.00); RDW 13.8 % (10.5-14.5); WBC 5.2 thou/uL (4.0-11.0)
[2019-09-26 16:04] LABS: URINE BILIRUBIN NEGATIVE (Negative); URINE BLOOD NEGATIVE (Negative); URINE CLARITY CLEAR; URINE COLOR YELLOW; URINE GLUCOSE-RANDOM* NEGATIVE (Negative); URINE KETONES 2+ (Negative); URINE LEUKOCYTES-REFLEX NEGATIVE (Negative); URINE NITRITE-REFLEX NEGATIVE (Negative); URINE PROTEIN (DIPSTICK) TRACE (Negative); URINE UROBILINOGEN 0.2 E.U./dl (0.2-1.0)
[2019-09-26 16:12] LABS: CALCIUM 8.6 mg/dL (8.5-10.1); CREATININE 0.6 mg/dL (0.6-1.0); POTASSIUM 3.8 mmol/L (3.5-5.1)
[2019-09-26 16:14] LABS: AMP/METHAMP Negative (Negative); BARBITURATES Negative (Negative); BENZODIAZEPINES Negative (Negative); COCAINE Negative (Negative); METHADONE Negative (Negative); OPIATES Negative (Negative); PCP Negative (Negative)
[2019-09-26 16:18] LABS: DIRECT BILIRUBIN 0.3 mg/dL (<0.1-0.2); MAGNESIUM 1.3 mg/dL (1.8-2.4); TOTAL BILIRUBIN 0.8 mg/dL (<0.1-1.0); TOTAL PROTEIN 8.3 g/dL (6.4-8.2)
[2019-09-26] MEDS ORDERED: TAMIFLU75 MG PO (17:35)
[2019-09-26 18:05] VITALS: BP 137/75
== END 2019-09-26 18:06 | disposition home or self-care (01) ==
LOC: EDBD 15:26 → ER 15:26
PROVIDERS: Emergency Medicine
DX: J11.1 Influenza due to unidentified influenza virus with other respiratory manifestations (principal); F10.129 Alcohol abuse with intoxication, unspecified; R11.2 Nausea with vomiting, unspecified; I10 Essential (primary) hypertension; J44.9 Chronic obstructive pulmonary disease, unspecified; M10.9 Gout, unspecified; F31.9 Bipolar disorder, unspecified; F17.210 Nicotine dependence, cigarettes, uncomplicated; Z91.14 Patient's other noncompliance with medication regimen; Z98.890 Other specified postprocedural states; Y90.8 Blood alcohol level of 240 mg/100 ml or more

== ENCOUNTER 2020-01-01 18:06 | Emergency (ER) | payer OTHER ==
[~2020-01-01] VITALS: Ht 152.4 cm; Wt 54.4 kg
--- NOTE | ~2020-01-01 | EMS ---
[facility] [address] [place] [address] EMS Patient Care Report Name: NITZA GRAY Room #: DEP SHILO Yuen#: [id number] Admission: 01/01/20 Attend Phys: Discharge: 01/02/20 Date of : 62 Report #: [id number] THIS REPORT FOR: //name// Report Transmitted: 01/02/2020 04:47 EMS Care Summary [place], [place]/[facility] Incident [id number] @ 01/01/2020 17:33 Incident Location [address] Patient NITZA GRAY Female, 59 Years 1960 Patient Address [address] [address] [place] [address] Patient History Asthma,Chronic Obstructive Pulmonary Disease (COPD),Hepatitis C (Without Hepatic Coma),Bipolar II Disorder,Anxiety,Alcohol Abuse, Patient Allergies No known allergies, Patient Medications Zyrtec, Vistaril, Advil, Gabapentin, Buspirone, Prilosec, Prazosin, Trazodone, Zyprexa, Chief Complaint I fell....... real bad...... leave me alone Disposition Transported No Lights/[place] Dispatch Reason Overdose/Poisoning/Ingestion Transported To [facility] Narrative PM finds pt wandering around the lobby of her apartment building. She is [facility] [address] [place] [address] EMS Patient Care Report Name: NITZA GRAY Room #: DEP [facility]#: [id number] Admission: 01/01/20 Attend Phys: Discharge: 01/02/20 Date of : 62 Report #: [id number] odiferous for an intoxicating beverage, most likely Smirnoff Vodka. PM is very familiar with her and her mental status is normal for her intoxication. She claims to have had a bad fall , however PM is unable to find any visible or palpable outward signs of trauma. Pt is frequently intoxicated and EMS see's her for this. Her mental status is baseline for her intoxication. Initial Vitals @17:56P: 102,R: 14,BP: 143/72,Pain: 0/10,GCS: 14,SpO2: 96,Revised Trauma: 12,AR Suspected: false @17:45P: 137,R: 18,BP: 158/89,Pain: 2/10,GCS: 14,Temp: 97.8F,Glucose: 75,CO: 0,SpO2: 96,Revised Trauma: 12,AR Suspected: false Assessments @17:53MENTAL:Confused,Person Oriented,Place Oriented,SKIN:HEENT:LUNG SOUNDS:ABDOMEN:PELVIS//GI:EXTREMITIES:PULSE:NEURO:Slurred Speech,@17:44MENTAL:Confused,Person Oriented,Place Oriented,SKIN:HEENT:Eyes: Left Pupil: 3-mm,Eyes: Right Pupil: 3-mm,Head/Face: No Abnormalities,Neck/Airway: No Abnormalities,LUNG SOUNDS:General: No Abnormalities,ABDOMEN:General: No Abnormalities,PELVIS//GI:No Abnormalities,EXTREMITIES:Left Arm: No Abnormalities,Right Arm: No Abnormalities,Left Leg: No Abnormalities,Right Leg: No Abnormalities,PULSE:NEURO:Slurred Speech, Impression Overdose - Alcohol Procedures @17:43ALS AssessmentResponse: UnchangedSucceeded@17:46StretcherResponse: Unchanged Timeline 17:32,Call Received 17:32,Dispatch Notified 17:33,Dispatched 17:34,En Route 17:41,On Scene 17:42,At Patient 17:43,ALS Assessment,Response: UnchangedSucceeded, 17:45,BP: 158/89 M,PULSE: 137,RR: 18 R,SPO2: 96 Ox,ETCO2: ,B,PAIN: 2,GCS: 14, 17:46,Stretcher,Response: Unchanged 17:48,Depart Scene 17:56,BP: 143/72 M,PULSE: 102,RR: 14 R,SPO2: 96 Ox,ETCO2: ,BG: ,PAIN: 0,GCS: 14, 18:02,At Destination [address] [address] EMS Patient Care Report Name: NITZA GRAY Room #: DEP SHILO Yuen#: [id number] Admission: 01/01/20 Attend Phys: Discharge: 01/02/20 Date of : 62 Report #: [id number] 18:16,Call Closed Disclaimer v1.1 Copyright 2020 [employer] This EMS Care Summary contains data elements from the applicable legal record (which may be displayed differently). It is designed to provide pertinent information for the following purposes: continuity of care, clinical quality, and state data reporting. The complete legal record is available to ED staff and administrators of the receiving hospital in [facility]'s Patient Tracker. All data is provided "as is."
[~2020-01-01 18:06] MED LIST changes: +TAMIFLU75 MG PO
[2020-01-01 20:05] LABS: CALCIUM 8.8 mg/dL (8.5-10.1); CREATININE 0.6 mg/dL (0.6-1.0); POTASSIUM 3.4 mmol/L (3.5-5.1)
[2020-01-01 20:11] LABS: ALBUMIN 3.4 g/dL (3.4-5.0); TOTAL BILIRUBIN 0.4 mg/dL (<0.1-1.0); TOTAL PROTEIN 8.5 g/dL (6.4-8.2)
[2020-01-01 20:27] LABS: ABSOLUTE NEUTROPHILS 3.7 thou/uL (1.4-8.2); BASOPHILS 1.1 % (0.0-2.0); EOSINOPHILS 0.5 % (0.0-3.0); HEMATOCRIT 40.9 % (37.0-47.0); HEMOGLOBIN 14.1 gm/dL (12.0-15.0); LYMPHOCYTES 35.4 % (24.0-44.0); MCH 31.4 pg (26.0-34.0); MCHC 34.5 g/dL (28.0-37.0); MCV 91.1 fL (80.0-100.0); MONOCYTES 4.5 % (1.0-8.0); PLATELET COUNT 273 thou/uL (150-400); POLYS 58.5 % (36.0-66.0); RBC 4.49 mil/uL (4.20-5.00); RDW 14.1 % (10.5-14.5); WBC 6.4 thou/uL (4.0-11.0)
[2020-01-02 01:41] VITALS: BP 139/87
--- NOTE | 2020-01-02 10:00 | EKG ---
[facility] [place] [address] [place] [address] ELECTROCARDIOGRAM REPORT Name: NITZA GRAY [id number] Admission: 01/01/20 Attend Phys: Discharge: 01/02/20 Date of : 62 Report #: [id number] THIS REPORT FOR: cc: [facility] - Clinic physician unknown [facility] - Clinic physician unknown Jt Gautam MD ~ THIS REPORT FOR: //name// [facility] ED Test Date: 2020-01-01 Test Time: 18:34:51 Pat Name: NITZA GRAY Department: Room: Gender: F Glass Crusher: BRIANNA : 1960 Requested By: Kelvin Tony Order Number: [id number] MD: Jt Gautam Measurements Intervals [place] Rate: 116 P: 57 [place]: 133 QRS: -47 QRSD: 81 T: 77 QT: 345 QTc: 480 Interpretive Statements Sinus tachycardia Atrial premature complex Left anterior fascicular block Abnormal R-wave progression, late transition Compared to ECG 09/24/2019 09:02:37 Atrial premature complex(es) now present Left anterior fascicular block now present Myocardial infarct finding no longer present Electronically Signed On 01-02-2020 9:59:07 CDT by Jt Gautam [email or web address] <ELECTRONICALLY SIGNED> By: Jt Gautam MD 01/02/20 0959 1834 1834 Jt Gautam MD /EPI
== END 2020-01-02 01:42 | disposition home or self-care (01) ==
LOC: ER 18:06
PROVIDERS: Emergency Medicine
DX: F10.129 Alcohol abuse with intoxication, unspecified (principal); F17.210 Nicotine dependence, cigarettes, uncomplicated; J44.9 Chronic obstructive pulmonary disease, unspecified; I10 Essential (primary) hypertension; M10.9 Gout, unspecified; F15.10 Other stimulant abuse, uncomplicated; Z98.890 Other specified postprocedural states; Y90.9 Presence of alcohol in blood, level not specified

== ENCOUNTER 2020-04-06 18:05 | Emergency (ER) | payer OTHER ==
[~2020-04-06] VITALS: Ht 152.4 cm; Wt 54.4 kg
--- NOTE | ~2020-04-06 | EMS ---
[facility] [address] [place] [address] EMS Patient Care Report Name: NITZA GRAY Room #: REG SHILO Yuen#: [id number] Admission: 04/06/20 Attend Phys: Discharge: Date of : 62 Report #: [id number] THIS REPORT FOR: //name// Report Transmitted: 04/06/2020 17:20 EMS Care Summary [place], [place]/[facility] Incident [id number] @ 04/06/2020 17:39 Incident Location [address] 308 Patient NITZA GRAY Female, 59 Years 1960 Patient Address [address] [address] Patient History Asthma,Chronic Obstructive Pulmonary Disease (COPD),Hepatitis C (Without Hepatic Coma),Bipolar II Disorder,Anxiety,Alcohol Abuse, Patient Allergies No known allergies, Patient Medications Trazodone, Buspirone, Vistaril, Zyrtec, Zyprexa, Prilosec, Advil, Prazosin, Gabapentin, Chief Complaint ABDOMINAL PAIN Disposition Transported No Lights/[place] Dispatch Reason Abdominal Pain/Problems Transported To [facility] Narrative DISPATCHED TO AN ABDOMINAL PAIN. ARRIVED ON SCENE OF APARTMENT BUILDING TO BE [facility] [address] [place] [address] EMS Patient Care Report Name: NITZA GRAY Room #: REG SHILO Yuen#: [id number] Admission: 04/06/20 Attend Phys: Discharge: Date of : 62 Report #: [id number] MET IN THE ELEVATOR BY PATIENT WHO SAID SHE HAS BEEN HAVING ABDOMINAL PAINS FOR ABOUT TWO DAYS WITH VOMITING AND NAUSEA. SHE SAID THAT DURING THIS PERIOD SHE HAD BEEN DRINKING "A LOT." SHE DESCRIBES IT AN ALL OVER PAIN AND EXPLAINS THAT SHE HAS GONE TO THE HOSPITAL SEVERAL TIMES IN THE PAST FOR THE SAME THING WHEN SHE IS DRINKING. PATIENT WAS ASSISTED IN SITTING ON THE COT, SECURED WITH STRAPS, AND MOVED TO THE BACK OF THE AMBULANCE. PATIENT'S VITALS WERE OBTAINED AND SHE WAS TRANSPORTED TO THE HOSPITAL. PATIENT'S VITALS WERE MONITORED ENROUTE AND UPON ARRIVAL SHE WAS MOVED INTO ED ROOM 6 ON THE COT AND ASSISTED IN MOVING OVER TO THE HOSPITAL BED. PATIENT CARE WAS TURNED OVER TO ED NURSING STAFF. Initial Vitals @17:53P: 106,BP: 148/82,SpO2: 96, @17:52P: 108,BP: 141/96,CO: 5,SpO2: 97, @17:48P: 117,R: 16,BP: 144/102,Pain: 6/10,GCS: 15,Glucose: 130,SpO2: 97,Revised Trauma: 12, @18:00P: 102,R: 18,BP: 143/87,Pain: 6/10,GCS: 15,CO: 6,SpO2: 92,Revised Trauma: 12, Assessments @17:46MENTAL:Person Oriented,Time Oriented,Place Oriented,Event Oriented,SKIN:HEENT:Head/Face: No Abnormalities,Neck/Airway: No Abnormalities,LUNG SOUNDS:General: Vomiting,General: Nausea,Right Upper: Other,Left Lower: Other,Right Lower: Other,ABDOMEN:General: Vomiting,General: Nausea,Right Upper: Other,Left Lower: Other,Right Lower: Other,PELVIS//GI:No Abnormalities,EXTREMITIES:Capillary Refill: Right Upper: < 2 Sec,Left Arm: No Abnormalities,Right Arm: No Abnormalities,Left Leg: No Abnormalities,Right Leg: No Abnormalities,PULSE:Radial: 2+ Normal,NEURO:No Abnormalities, Impression Abdominal Pain Procedures @17:46ALS AssessmentResponse: UnchangedSucceeded Timeline 17:34,Call Received 17:34,Dispatch Notified 17:39,Dispatched 17:40,En Route 17:44,On Scene 17:46,At Patient 17:46,ALS Assessment,Response: UnchangedSucceeded, 17:48,BP: 144/102 M,PULSE: 117,RR: 16 R,SPO2: 97 Ox,ETCO2: ,B,PAIN: 6,GCS: 15, 17:51,[place] [address] EMS Patient Care Report Name: NITZA GRAY Room #: REG SHILO Yuen#: [id number] Admission: 04/06/20 Attend Phys: Discharge: Date of : 62 Report #: [id number] 17:52,BP: 141/96 M,PULSE: 108,RR: R,SPO2: 97 Ox,ETCO2: ,BG: ,PAIN: ,GCS: , 17:53,BP: 148/82 M,PULSE: 106,RR: R,SPO2: 96 Ox,ETCO2: ,BG: ,PAIN: ,GCS: , 18:00,BP: 143/87 M,PULSE: 102,RR: 18 R,SPO2: 92 Ox,ETCO2: ,BG: ,PAIN: 6,GCS: 15, 18:01,At Destination 18:10,Call Closed Disclaimer v1.1 Copyright 2020 [employer] This EMS Care Summary contains data elements from the applicable legal record (which may be displayed differently). It is designed to provide pertinent information for the following purposes: continuity of care, clinical quality, and state data reporting. The complete legal record is available to ED staff and administrators of the receiving hospital in [employer]'s Patient Tracker. All data is provided "as is."
[2020-04-06 18:38] LABS: URINE BILIRUBIN NEGATIVE (Negative); URINE BLOOD NEGATIVE (Negative); URINE CLARITY CLEAR; URINE COLOR YELLOW; URINE GLUCOSE-RANDOM* NEGATIVE (Negative); URINE KETONES NEGATIVE (Negative); URINE LEUKOCYTES-REFLEX NEGATIVE (Negative); URINE NITRITE-REFLEX NEGATIVE (Negative); URINE PROTEIN (DIPSTICK) NEGATIVE (Negative); URINE SPECIFIC GRAVITY 1.015 (1.005-1.035); URINE UROBILINOGEN 0.2 E.U./dl (0.2-1.0)
[2020-04-06 19:16] LABS: ABSOLUTE NEUTROPHILS 2.4 thou/uL (1.4-8.2); BASOPHILS 1.2 % (0.0-2.0); HEMOGLOBIN 15.1 gm/dL (12.0-15.0); LYMPHOCYTES 49.8 % (24.0-44.0); MCH 31.3 pg (26.0-34.0); MCHC 33.6 g/dL (28.0-37.0); MCV 93.2 fL (80.0-100.0); PLATELET COUNT 305 thou/uL (150-400); RBC 4.83 mil/uL (4.20-5.00); RDW 14.7 % (10.5-14.5); WBC 5.7 thou/uL (4.0-11.0)
[2020-04-06 19:23] LABS: ANION GAP 8 mmol/L (7-16); BUN 8 mg/dL (7-18); CALCIUM 8.7 mg/dL (8.5-10.1); CHLORIDE 99 mmol/L (98-107); CO2 31 mmol/L (21-32); CREATININE 0.7 mg/dL (0.6-1.0); GLUCOSE 97 mg/dL (74-106); POTASSIUM 3.9 mmol/L (3.5-5.1); SODIUM 138 mmol/L (136-145)
[2020-04-06 19:30] LABS: AMP/METHAMP Negative (Negative); BARBITURATES Negative (Negative); BENZODIAZEPINES Negative (Negative); COCAINE Negative (Negative); METHADONE Negative (Negative); OPIATES Negative (Negative); PCP Negative (Negative)
[2020-04-06 19:33] LABS: ALBUMIN 2.9 g/dL (3.4-5.0); LIPASE 163 U/L (73-393); SGOT 31 U/L (15-37); SGPT 25 U/L (30-65); TOTAL BILIRUBIN 0.2 mg/dL (0.2-1.0); TOTAL PROTEIN 7.5 g/dL (6.4-8.2); TROPONIN-I <0.06 ng/mL (<0.06)
[2020-04-06] MEDS ORDERED: ONDANSETRON ODT8 MG PO (23:49)
[2020-04-06] MEDS ORDERED: PRILOSEC OTC20 MG PO (23:49)
[2020-04-07 00:05] VITALS: BP 119/75
--- NOTE | 2020-04-07 14:04 | EKG ---
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: [facility] : 1960 Requested By: Darrin Cat Order Number: [id number] MD: Dayton Finnegan Measurements Intervals [place] Rate: 101 P: 67 GA: 133 QRS: -50 QRSD: 83 T: 80 QT: 360 QTc: 467 Interpretive Statements Sinus tachycardia Probable left atrial enlargement Left anterior fascicular block Compared to ECG 01/01/2020 18:34:51 Electronically Signed On 04-07-2020 14:04:08 CDT by Dayton Finnegan [email or web address] <ELECTRONICALLY SIGNED> By: Dayton Finnegan MD 04/07/20 1404 17 17 Dayton Finnegan MD /EPI
== END 2020-04-07 | disposition home or self-care (01) ==
LOC: ER 18:05
PROVIDERS: Emergency Medicine
DX: F10.129 Alcohol abuse with intoxication, unspecified (principal); R11.2 Nausea with vomiting, unspecified; F12.90 Cannabis use, unspecified, uncomplicated; K29.20 Alcoholic gastritis without bleeding; R10.84 Generalized abdominal pain; F17.210 Nicotine dependence, cigarettes, uncomplicated; J44.9 Chronic obstructive pulmonary disease, unspecified; M10.9 Gout, unspecified; Z98.890 Other specified postprocedural states; Y90.9 Presence of alcohol in blood, level not specified

== ENCOUNTER 2020-05-09 13:13 | Emergency (ER) | payer OTHER ==
[~2020-05-09] VITALS: Ht 162.6 cm; Wt 63.5 kg
[2020-05-09 14:20] LABS: URINE BILIRUBIN NEGATIVE (Negative); URINE BLOOD NEGATIVE (Negative); URINE CLARITY CLEAR; URINE COLOR YELLOW; URINE GLUCOSE-RANDOM* NEGATIVE (Negative); URINE KETONES NEGATIVE (Negative); URINE LEUKOCYTES-REFLEX NEGATIVE (Negative); URINE NITRITE-REFLEX NEGATIVE (Negative); URINE PROTEIN (DIPSTICK) NEGATIVE (Negative); URINE SPECIFIC GRAVITY <= 1.005 (1.005-1.035); URINE UROBILINOGEN 0.2 E.U./dl (0.2-1.0)
[2020-05-09 14:29] LABS: AMP/METHAMP Negative (Negative); BARBITURATES Negative (Negative); BENZODIAZEPINES Negative (Negative); COCAINE Negative (Negative); METHADONE Negative (Negative); OPIATES Negative (Negative); PCP Negative (Negative)
[2020-05-09 14:43] VITALS: BP 135/91
== END 2020-05-09 14:48 | disposition left against medical advice (07) ==
LOC: ER 13:13
PROVIDERS: Emergency Medicine
DX: R10.9 Unspecified abdominal pain (principal); F17.210 Nicotine dependence, cigarettes, uncomplicated; I10 Essential (primary) hypertension; J44.9 Chronic obstructive pulmonary disease, unspecified; Z79.899 Other long term (current) drug therapy

== ENCOUNTER 2021-07-15 15:22 | Inpatient (IN) | payer OTHER ==
[~2021-07-15] VITALS: Ht 152.4 cm; Wt 73.4 kg
--- NOTE | ~2021-07-15 | EMS ---
[facility] [address] [place] [address] EMS Patient Care Report Name: NITZA GRAY Room #: 170-5 ADM IN M.R.#: [id number] Admission: 07/15/21 Attend Phys: Starr Muniz MD Discharge: Date of : 62 Report #: [id number] THIS REPORT FOR: //name// Report Transmitted: 07/15/2021 17:48 EMS Care Summary [place], [place]/[facility] Incident [id number] @ 07/15/2021 14:30 Incident Location [address] 305 Patient NITZA GRAY Female, 60 Years 1960 Patient Address [address] [address] Patient History Asthma,Chronic Obstructive Pulmonary Disease (COPD),Smoking,Substance Abuse,Depression,Anxiety,Alcohol Abuse, Patient Allergies No known allergies, Patient Medications Gabapentin, Olanzapine, Combivent, Hydroxyzine, Pantoprazole, Temazepam, Chief Complaint breathing problems Disposition Transported No Lights/[place] Dispatch Reason Breathing Problem Transported To [facility] Narrative arrived on scene and located patient conscious and breathing reporting she does not feel good states she has been having trouble breathing all day states has [facility] [address] [place] [address] EMS Patient Care Report Name: NITZA GRAY Room #: 170-5 ADM IN M.R.#: [id number] Admission: 07/15/21 Attend Phys: Starr Muniz MD Discharge: Date of : 62 Report #: [id number] been using her inhaler all day and no relief patient report slight pain to upper abdomen epigastric region states she has been drinking vodka states drank 2 pints so far today and states she drinks every day patient provided with nebulized medications patient transported without incident report given to data governance analyst at bedside all belonging remained with patient Initial Vitals @15:10P: 117,BP: 120/75,SpO2: 96, @14:38P: 135,CO: 7,SpO2: 89, @14:40P: 133,BP: 153/83,CO: 5,SpO2: 88, @14:54P: 118, @14:59P: 116,BP: 126/78, @14:52P: 120,BP: 133/82,CO: 4,SpO2: 94, @14:47P: 124,BP: 71/46,CO: 2,SpO2: 96, @15:06P: 118,SpO2: 84, @14:39P: 136,R: 28,BP: 156/102,Pain: 2/10,GCS: 15,Glucose: 85,SpO2: 89,Revised Trauma: 12, Assessments @14:40MENTAL:Person Oriented,Time Oriented,Event Oriented,Place Oriented,SKIN:Pale,HEENT:Head/Face: No Abnormalities,Neck/Airway: No Abnormalities,LUNG SOUNDS:General: No Abnormalities,ABDOMEN:General: No Abnormalities,PELVIS//GI:No Abnormalities,EXTREMITIES:Capillary Refill: Right Upper: < 2 Sec,Capillary Refill: Left Upper: < 2 Sec,Left Arm: No Abnormalities,Right Arm: No Abnormalities,Left Leg: No Abnormalities,Right Leg: No Abnormalities,PULSE:Radial: 2+ Normal,NEURO:No Abnormalities, Impression Shortness of breath Procedures @14:5412-Lead ECGResponse: UnchangedSucceeded@14:40ALS AssessmentResponse: UnchangedSucceeded@14:41Albuterol - 2.5 Milligrams (mg) - NebulizedResponse: Improved@14:41Atrovent - 0.5 Milligrams (mg) - NebulizedResponse: Improved@14:403-Lead ECGResponse: UnchangedSucceeded@14:42Saline Lock 0cc (20 ga) Site: Antecubital-LeftResponse: UnchangedFailed@14:42Saline Lock 1cc (22 ga) Site: Hand-LeftResponse: UnchangedFailed Timeline 14:28,Call Received 14:28,Dispatch Notified 14:30,Dispatched 14:31,En Route 14:33,On Scene 14:38,At Patient 14:38,BP: / M,PULSE: 135,RR: R,SPO2: 89 Ox,ETCO2: ,BG: ,PAIN: ,GCS: , [address] [address] EMS Patient Care Report Name: NITZA GRAY Room #: 170-5 ADM IN M.R.#: [id number] Admission: 07/15/21 Attend Phys: Starr Muniz MD Discharge: Date of : 62 Report #: [id number] 14:39,BP: 156/102 M,PULSE: 136,RR: 28 R,SPO2: 89 Ox,ETCO2: ,B,PAIN: 2,GCS: 15, 14:40,ALS Assessment,Response: UnchangedSucceeded, 14:40,BP: 153/83 M,PULSE: 133,RR: R,SPO2: 88 Ox,ETCO2: ,BG: ,PAIN: ,GCS: , 14:40,3-Lead ECG,Response: UnchangedSucceeded, 14:41,Albuterol - 2.5 Milligrams (mg) - Nebulized,Response: Improved 14:41,Atrovent - 0.5 Milligrams (mg) - Nebulized,Response: Improved 14:42,Saline Lock 0cc 20 ga Site: Antecubital-Left,Response: UnchangedFailed, 14:42,Saline Lock 1cc 22 ga Site: Hand-Left,Response: UnchangedFailed, 14:47,BP: 71/46 M,PULSE: 124,RR: R,SPO2: 96 Ox,ETCO2: ,BG: ,PAIN: ,GCS: , 14:52,BP: 133/82 M,PULSE: 120,RR: R,SPO2: 94 Ox,ETCO2: ,BG: ,PAIN: ,GCS: , 14:54,12-Lead ECG,Response: UnchangedSucceeded, 14:54,BP: / M,PULSE: 118,RR: R,SPO2: Ox,ETCO2: ,BG: ,PAIN: ,GCS: , 14:59,BP: 126/78 M,PULSE: 116,RR: R,SPO2: Ox,ETCO2: ,BG: ,PAIN: ,GCS: , 15:02,Depart Scene 15:06,BP: / M,PULSE: 118,RR: R,SPO2: 84 Ox,ETCO2: ,BG: ,PAIN: ,GCS: , 15:10,BP: 120/75 M,PULSE: 117,RR: R,SPO2: 96 Ox,ETCO2: ,BG: ,PAIN: ,GCS: , 15:17,At Destination 15:39,Call Closed Disclaimer v1.1 Copyright 2020 [employer] This EMS Care Summary contains data elements from the applicable legal record (which may be displayed differently). It is designed to provide pertinent information for the following purposes: continuity of care, clinical quality, and state data reporting. The complete legal record is available to ED staff and administrators of the receiving hospital in [employer]'s Patient Tracker. All data is provided "as is."
[2021-07-15 15:26] VITALS: BP 136/92
[2021-07-15 16:41] LABS: URINE BILIRUBIN NEGATIVE (Negative); URINE BLOOD NEGATIVE (Negative); URINE CLARITY CLEAR; URINE COLOR YELLOW; URINE GLUCOSE-RANDOM* NEGATIVE (Negative); URINE KETONES NEGATIVE (Negative); URINE LEUKOCYTES-REFLEX TRACE (Negative); URINE NITRITE-REFLEX NEGATIVE (Negative); URINE PROTEIN (DIPSTICK) NEGATIVE (Negative); URINE SPECIFIC GRAVITY <= 1.005 (1.005-1.035); URINE UROBILINOGEN 0.2 E.U./dl (0.2-1.0)
[2021-07-15 16:50] LABS: AMP/METHAMP Negative (Negative); BARBITURATES Negative (Negative); BENZODIAZEPINES Negative (Negative); COCAINE Negative (Negative); METHADONE Negative (Negative); OPIATES Negative (Negative); PCP Negative (Negative)
[2021-07-15 17:38] LABS: ABSOLUTE NEUTROPHILS 4.6 thou/uL (1.4-8.2); BASOPHILS 1.2 % (0.0-2.0); HEMATOCRIT 47.4 % (37.0-47.0); HEMOGLOBIN 16.3 gm/dL (12.0-15.0); LYMPHOCYTES 30.7 % (24.0-44.0); MCH 30.1 pg (26.0-34.0); MCHC 34.5 g/dL (28.0-37.0); MCV 87.4 fL (80.0-100.0); MONOCYTES 4.3 % (1.0-8.0); PLATELET COUNT 334 thou/uL (150-400); POLYS 62.8 % (36.0-66.0); RBC 5.43 mil/uL (4.20-5.00); WBC 7.3 thou/uL (4.0-11.0)
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
[2021-07-15 17:59] LABS: ANION GAP 15 mmol/L (7-16); BUN 6 mg/dL (7-18); CALCIUM 8.9 mg/dL (8.5-10.1); CHLORIDE 103 mmol/L (98-107); CO2 25 mmol/L (21-32); CREATININE 0.7 mg/dL (0.6-1.0); GLUCOSE 100 mg/dL (74-106); POTASSIUM 3.5 mmol/L (3.5-5.1); SODIUM 143 mmol/L (136-145)
[2021-07-15 18:04] LABS: ALBUMIN 3.3 g/dL (3.4-5.0); MAGNESIUM 1.6 mg/dL (1.8-2.4); SGOT 24 U/L (15-37); SGPT 15 U/L (14-59); TOTAL BILIRUBIN 0.1 mg/dL (0.2-1.0); TOTAL PROTEIN 8.1 g/dL (6.4-8.2)
[2021-07-16 04:25] LABS: HEMATOCRIT 48.9 % (37.0-47.0); HEMOGLOBIN 15.8 gm/dL (12.0-15.0); MCH 29.4 pg (26.0-34.0); MCHC 32.3 g/dL (28.0-37.0); MCV 91.1 fL (80.0-100.0); RBC 5.37 mil/uL (4.20-5.00); RDW 15.4 % (10.5-14.5); WBC 3.7 thou/uL (4.0-11.0)
[2021-07-16 04:39] LABS: CALCIUM 8.4 mg/dL (8.5-10.1); CREATININE 0.5 mg/dL (0.6-1.0); MAGNESIUM 1.5 mg/dL (1.8-2.4)
[2021-07-16 04:48] LABS: POTASSIUM 4.5 mmol/L (3.5-5.1)
[2021-07-16 07:06] VITALS: BP 145/83
--- NOTE | 2021-07-16 07:30 | EKG ---
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 : 1960 Requested By: Lizeth Olvera Order Number: [id number] MD: Bill Will Measurements Intervals [place] Rate: 114 P: 73 [place]: 138 QRS: -63 QRSD: 85 T: 76 QT: 350 QTc: 483 Interpretive Statements Sinus tachycardia Abnormal R-wave progression, early transition Inferior infarct, old Compared to ECG 04/06/2020 19:18:13 Inferior Q waves are more prominent Electronically Signed On 07-16-2021 7:30:22 CDT by Bill Will [email or web address] <ELECTRONICALLY SIGNED> By: Bill Will MD, [facility] 07/16/21 0730 1537 37 Bill Will MD, FACC /EPI
[2021-07-16 19:42] VITALS: BP 154/91
[2021-07-16 21:20] VITALS: BP 153/97
[2021-07-17] VITALS (7 sets, daily range): BP systolic 120–167; BP diastolic 63–106
--- NOTE | 2021-07-17 07:00 | NUR ---
ASSUME CARE 1900. PT/VITALS STABLE. INTERMITTENT HEADACHES AND ANXIETY INICATED WITH MED FOR RELIEF. A/O X 4. PLEASANT WITH NO DISTRESS NOTED. NO AGITATION NOTED. GOOD TOLERANCE TO ACTIVITY. STEADY ON FEET. ASSESSMENT CHARTED. PROGRESSING MODERTELY WITH POC. PLAN IS TO CONTINUE TO MONITOR RESPIRATION/ELECTROLYTES/LOC. WILL CONTINEU TO MONITOR AND FOLLOW WITH POC
--- NOTE | 2021-07-17 16:01 | NUR ---
PT ANXIOUS AND AGITATED. SHE DOES NOT FEEL THAT WE ARE DOING ANYTHING FOR HER AND SHE IS NOT GETTING BETTER. PT HAS CONSULT FOR PSYCH DUE TO PT TALKING ABOUT LEAVING AMA. STAT DOSE OF HALODOL ORDERED. PT C/O 07/22 HEADACHE, CT-HEAD ORDERED. PT CIWA SCORE-11. CONTINUES ON NASAL CANNULA. PT HAS BEEN THOUROUGHLY UPDATED AND EDUCATED ON PT CONDITION AND POC. PT SLOWLY PROGRESSING TOWARDS POC. PT AFEBRILE, ADEQUATE UOP, NO BM, FAIR APPETITE.
[2021-07-18 03:07] VITALS: BP 156/85
--- NOTE | 2021-07-18 06:00 | NUR ---
Pt. rested quietly during the shift when checked on during frequent rounds. She c/o chronic headache and pain meds given (see emar). Prn ativan also given for c/o of feeling anxious (see emar) with some relief. Cooperative with cares. Bed alarm is on.
[2021-07-18 08:00] VITALS: BP 147/80
[2021-07-18 13:07] VITALS: BP 155/75
[2021-07-18 16:00] VITALS: BP 156/104
--- NOTE | 2021-07-18 16:38 | NUR ---
Case opened to follow for md planning. Pt is a&ox3 today but forgetful. She is anxious about being exhausted but needing something to help her sleep. She reports she lives in her apt alone. She is disabled d/t mental health issues and notes she is bipolar. She also has copd and is a smoker. She binge drinks vodka and has struggled with ethol and substance abuse for many years. She has a cm Ajay at [facility] and helps with her errands and appointments. She sees Cathy Beal every 3 months and has been doing telemed appts due to the pandemic. She called Ajay via her phone to speak with cm. Ajay notes that she had 8-9 months of sobriety last year which has been her longest stretch ever. She would like Ajay updated at md. Her plan is to return home but she is agreeable to stay for tx of her copd and ethol detox. She has no dme and uses the elevator at her apt complex. Her son Leroy is her dpoa if needed. She is anxious about getting some trazadone to help her sleep. Nursing updated. PT/OT are seeing the pt. Cm role introduced. Will follow along should HH or SNF be indicated.
[2021-07-18 19:26] VITALS: BP 145/76
--- NOTE | 2021-07-18 20:27 | NUR ---
PT REMAINED ON CIWA PROTOCAL SCORING ABOVE 10 THROUGHOUT PT RECEIVED MEDICAITONS. PT REFEUSED TO EAT STATING SHE WAS NOT HUNGRY. OTHERWISE PT REMAINED CALM THROUGHOUT THE SHIFT.
--- NOTE | 2021-07-19 04:53 | NUR ---
UNABLE TO REINSERT IV THAT HAS BEEN ACCIDNETLY DISCONTINUED BY PT. LEFT MESSAGE WITH IV TEAM FOR REINSERTION. CHANGED ORDER OF ATIVAN TO PO SINCE IV SITE COMPROMISED. BED ALARM SET, SHE FORGETS TO CALL FOR ASSIST OUT OF BED. ABLE TO WALK WITH A STEADY GAIT TO RESTROOM. SHE HAS HAD CIWA SCORES AROUND 10 TONIGHT
[2021-07-19 05:10] VITALS: BP 157/83
[2021-07-19 07:29] VITALS: BP 177/81
--- NOTE | 2021-07-19 10:48 | 2DMMODE ---
[facility] Charlene Treviño [employer] [place] [address] 2 D/M-MODE ECHOCARDIOGRAM Name: NITZA GRAY Room #: 218-P ADM IN M.R.#: [id number] Admission: 07/15/21 Attend Phys: Starr Muniz MD Discharge: Date of : 62 Report #: [id number] THIS REPORT FOR: cc: JONO - No family physician/PCP JONO - No family physician/PCP Isidoro Smart MD [facility] ~ APPROVED REPORT Study performed: 07/19/2021 09:46:58 EXAM: Comprehensive 2D, Doppler, and color-flow Echocardiogram Patient Location: Bedside Room #: 218 Status: routine BSA: 1.70 HR: 79 bpm BP: 177/81 mmHg Rhythm: NSR Other Information Study Quality: Adequate Technically limited study due to inability to position patient. Indications Congestive Heart Failure COPD Dyspnea Hypertension/HDD 2D Dimensions IVSd: 9.58 (7-11mm) LVOT Diam: 17.92 (18-24mm) LVDd: 35.42 mm PWd: 9.63 (7-11mm) Ascending Ao: 31.08 (22-36mm) LVDs: 22.06 (25-40mm) Left Atrium: 32.90 (27-40mm) Aortic Root: 29.04 mm IVC: 15.00 mm Aortic Valve AoV Peak Guido.: 1.12 m/s AO Peak Gr.: 5.03 mmHg LVOT Max P.32 mmHg LVOT Max V: 1.04 m/s ANDREA Vmax: 2.34 cm2 [facility] [address] [place] [address] 2 D/M-MODE ECHOCARDIOGRAM Name: NITZA GRAY Room #: 218[facility].#: [id number] Admission: 07/15/21 Attend Phys: Starr Muniz MD Discharge: Date of : 62 Report #: [id number] Mitral Valve E/A Ratio: 0.8 MV Decel. Time: 288.91 ms MV E Max Guido.: 0.72 m/s MV A Guido.: 0.90 m/s MV PHT: 83.78 ms IVRT: 129.18 ms Pulmonary Valve PV Peak Guido.: 0.81 m/s PV Peak Gr.: 2.63 mmHg Pulmonary Vein P Vein S: 0.47 m/s P Vein A: 0.27 m/s P Vein D: 0.30 m/s P Vein A Dur.: 96.9 msec P Vein S/D Ratio: 1.57 Left Ventricle The left ventricle is normal size. There is normal LV segmental wall motion. There is normal left ventricular wall thickness. Left ventricular systolic function is hyperdynamic. LVEF is >70%. Grade I - abnormal relaxation pattern. Right Ventricle The right ventricle is normal size. The right ventricular systolic function is normal. Atria The left atrium size is normal. The right atrium size is normal. Aortic Valve The aortic valve is normal in structure. No aortic regurgitation is present. There is no aortic valvular stenosis. Mitral Valve The mitral valve is normal in structure. There is no mitral valve regurgitation noted. No evidence of mitral valve stenosis. Tricuspid Valve The tricuspid valve is normal in structure. There is no tricuspid valve regurgitation noted. Pulmonic Valve The pulmonary valve is normal in structure. There is no pulmonic valvular regurgitation. [facility] [place] [address] 2 D/M-MODE ECHOCARDIOGRAM Name: NITZA GRAY Room #: 218-P ADM IN M.R.#: [id number] Admission: 07/15/21 Attend Phys: Starr Muniz MD Discharge: Date of : 62 Report #: [id number] Great Vessels The aortic root is normal in size. IVC is normal in size and collapses >50% with inspiration. Pericardium There is no pericardial effusion. <Conclusion> Normal left ventricle size/wall thickness Ejection fraction 70% Grade 1 diastolic dysfunction Normal right ventricular size/function Normal atrial size Normal aortic/mitral valve structure and function No tricuspid valve insufficiency No pericardial effusion Normal aortic root size. <ELECTRONICALLY SIGNED> By: Isidoro Smart MD, [facility] 07/19/21 1048 1048 1048 Isidoro Smart MD, FACC /INF
[2021-07-19 11:31] VITALS: BP 137/83
--- NOTE | 2021-07-19 13:59 | NUR ---
A #4F POWER MIDLINE WAS PLACED AFTER VERBAL CONSENT OBTAINED. THE LINE WAS TRIMMED TO 14CM AND ADVANCED WITHOUT DIFFICULTY. LINE WAS SECURED AND RELEASED FOR USE
[2021-07-19 15:54] VITALS: BP 144/78
--- NOTE | 2021-07-19 16:10 | NUR ---
Pt anxious to dc home today. She is requesting a cab voucher. She indicates she may be open to home o2 but lives in a small apt and does not intend to stop smoking. She has been in the 90's on room air but desats a little with activity. She refused having a home health RN for f/u at home. She is focused on leaving more than anything. Cab voucher provided to unit rn. Message left for her [facility] Moss as he will f/u with her at home tomorrow.
[2021-07-19 16:17] VITALS: BP 144/78
[2021-07-19] MEDS ORDERED: AZITHROMYCIN500 MG PO (16:49)
[2021-07-19] MEDS ORDERED: PULMICORT0.5 MG/21 INH (16:49)
[2021-07-19] MEDS ORDERED: CEFDINIR300 MG PO (16:49)
[2021-07-19] MEDS ORDERED: METOPROLOL TART25 MG PO (16:49)
[2021-07-19] MEDS ORDERED: TRAZODONE HCL100 MG PO (16:49)
[2021-07-19] MEDS ORDERED: IPRAT-ALBUT 0.5-3 ML INH (16:49)
[2021-07-19] MEDS ORDERED: VISTARIL 25 MG25 M1 PO (16:49)
[2021-07-19] MEDS ORDERED: VITAMIN B-1100 M2 PO (16:49)
[2021-07-19] MEDS ORDERED: FOLIC ACID0.4 MG PO (16:49)
[2021-07-19] MEDS ORDERED: PREDNISONE 20 M20 MG PO (16:49)
[2021-07-19] MEDS ORDERED: NEBULIZER MISCELL (16:52)
--- NOTE | 2021-07-19 17:22 | NUR ---
PT DISCHARGED TO HOME VIA CAB. EXPLIANED TO PATIENT THE MEDICATION CHANGES AND DISCHARGE INSTRUCTIONS. ANSWERED ALL QUESTIONS.
== END 2021-07-19 18:00 | disposition home or self-care (01) | DRG 189 ==
LOC: ER 15:22 → 2N 18:45 → EROBS 18:45 → 2N 07-16 20:25
PROVIDERS: Nurse Practitioner Family; ADMIT Internal Medicine; ATTEND Internal Medicine
PROC: 05HB33Z Insertion of Infusion Device into Right Basilic Vein, Percutaneous Approach (ICD-10-PCS; principal; 2021-07-19)
DX: J96.01 Acute respiratory failure with hypoxia (principal); J44.1 Chronic obstructive pulmonary disease with (acute) exacerbation; R45.851 Suicidal ideations; E87.2 Acidosis; F10.139 Alcohol abuse with withdrawal, unspecified; Z20.822 Contact with and (suspected) exposure to COVID-19; F10.129 Alcohol abuse with intoxication, unspecified; F31.9 Bipolar disorder, unspecified; I10 Essential (primary) hypertension; M10.9 Gout, unspecified; F12.90 Cannabis use, unspecified, uncomplicated; F17.210 Nicotine dependence, cigarettes, uncomplicated; Z60.2 Problems related to living alone; E83.42 Hypomagnesemia; D72.819 Decreased white blood cell count, unspecified; Z86.19 Personal history of other infectious and parasitic diseases; Z71.6 Tobacco abuse counseling; Z79.899 Other long term (current) drug therapy
CPT/HCPCS: 10081; 27000

== ENCOUNTER 2021-08-05 17:08 | Inpatient (IN) | payer OTHER ==
[~2021-08-05] VITALS: Ht 152.4 cm; Wt 78.6 kg
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
[~2021-08-05 17:08] MED LIST changes: +AZITHROMYCIN500 MG PO; +CEFDINIR300 MG PO; +FOLIC ACID0.4 MG PO; +IPRAT-ALBUT 0.5-3 ML INH; +METOPROLOL TART25 MG PO; +NEBULIZER MISCELL; +PREDNISONE 20 M20 MG PO; +PULMICORT0.5 MG/21 INH; +VISTARIL 25 MG25 M1 PO
[2021-08-05 17:09] VITALS: BP 129/72
[2021-08-05 17:55] LABS: ABSOLUTE NEUTROPHILS 3.4 thou/uL (1.4-8.2); EOSINOPHILS 3.7 % (0.0-3.0); HEMATOCRIT 49.8 % (37.0-47.0); HEMOGLOBIN 16.7 gm/dL (12.0-15.0); LYMPHOCYTES 46.8 % (24.0-44.0); MCH 29.9 pg (26.0-34.0); MCHC 33.5 g/dL (28.0-37.0); MCV 89.2 fL (80.0-100.0); MONOCYTES 5.5 % (1.0-8.0); PLATELET COUNT 303 thou/uL (150-400); RBC 5.58 mil/uL (4.20-5.00); RDW 15.8 % (10.5-14.5); WBC 7.9 thou/uL (4.0-11.0)
[2021-08-05 18:02] LABS: URINE BILIRUBIN NEGATIVE (Negative); URINE BLOOD NEGATIVE (Negative); URINE CLARITY CLEAR; URINE COLOR YELLOW; URINE GLUCOSE-RANDOM* NEGATIVE (Negative); URINE KETONES NEGATIVE (Negative); URINE LEUKOCYTES-REFLEX TRACE (Negative); URINE NITRITE-REFLEX NEGATIVE (Negative); URINE PROTEIN (DIPSTICK) NEGATIVE (Negative); URINE UROBILINOGEN 0.2 E.U./dl (0.2-1.0)
[2021-08-05 18:13] LABS: ANION GAP 9 mmol/L (7-16); BUN 4 mg/dL (7-18); CALCIUM 8.9 mg/dL (8.5-10.1); CHLORIDE 109 mmol/L (98-107); CO2 30 mmol/L (21-32); CREATININE 0.7 mg/dL (0.6-1.0); GLUCOSE 99 mg/dL (74-106); SODIUM 148 mmol/L (136-145)
[2021-08-05 18:18] LABS: ALBUMIN 3.3 g/dL (3.4-5.0); SGOT 28 U/L (15-37); SGPT 23 U/L (30-65); TOTAL BILIRUBIN 0.1 mg/dL (0.2-1.0)
[2021-08-05 18:21] LABS: APTT 26.2 Seconds (24.5-32.8); D-DIMER 0.23 ug/mLFEU (0.19-0.50); INR 0.98; PROTIME 10.7 Seconds (10.5-12.1)
[2021-08-05 19:27] VITALS: BP 117/67
[2021-08-05 19:35] VITALS: BP 106/65
[2021-08-05 20:25] VITALS: BP 142/97
[2021-08-05] MEDS ORDERED: RESTORIL15 M1 PO (20:48)
[2021-08-05] MEDS ORDERED: COMBIVENT RESPIM4 GM INH (20:48)
[2021-08-05] MEDS ORDERED: ADVAIR 250-501 EACH INH (20:49)
[2021-08-05] MEDS ORDERED: PROTONIX40 M2 PO (21:01)
--- NOTE | 2021-08-05 21:52 | NUR ---
ADMIT FROM ED. PT AT HOME CALLED EMS [facility]. PT IS SUPPOSED TO HAVE HOME O2 BUT WAS NOT ABLE TO OBTAIN IT. ROOM AIR SAT 88%, GIVEN RESPIRATORY TREATMENT BY EMS. IN ED NC 2L AND MEDICATIONS AND FLUIDS. LUNGS WITH WHEEZES. PT STATES SHE IS A DAILY MARIJUANA SMOKER, WEEKLY CIGARETTE SMOKER, MONTHLY VODKA USE. PT REPORTS STRONG HISTORY OF ANXIETY AND USES MARIJUANA VERSUS PRESCRIPTION MEDICATIONS. PT LIVES ALONE, SON IS DPOA. PT HAS PREVIOUSLY BEEN AT [facility] LEAVING AMA.
[2021-08-05] MEDS ORDERED: TEMAZEPAM30 MG PO (22:10)
[2021-08-05] MEDS ORDERED: TRAZODONE HCL100 MG PO (22:10)
[2021-08-05] MEDS ORDERED: METOPROLOL TART25 MG PO (22:10)
[2021-08-05] MEDS ORDERED: OLANZAPINE15 M1 PO (22:11)
[2021-08-05] MEDS ORDERED: HYDROXYZINE HCL50 MG PO (22:11)
--- NOTE | 2021-08-05 22:26 | NUR ---
PTS HOME MEDS PLACED IN SECURITY ENVELOPE IN FRONT OF PT AND TAKEN TO PHARMACY. PT VISITED WITH BUILDING GUARD DEPUTY SHERIFF AND REVIEWED HOME MEDICATIONS MORE EXTENSIVELY THAN SHE DID DURING NURSING HISTORY AND ASSESSMENT.
[2021-08-06 02:39] VITALS: BP 151/102
[2021-08-06 03:07] LABS: HEMATOCRIT 45.4 % (37.0-47.0); HEMOGLOBIN 15.1 gm/dL (12.0-15.0); MCH 29.8 pg (26.0-34.0); MCHC 33.3 g/dL (28.0-37.0); MCV 89.5 fL (80.0-100.0); RBC 5.07 mil/uL (4.20-5.00); RDW 15.6 % (10.5-14.5); WBC 4.4 thou/uL (4.0-11.0)
[2021-08-06 03:23] LABS: CALCIUM 8.3 mg/dL (8.5-10.1); CREATININE 0.6 mg/dL (0.6-1.0); POTASSIUM 4.1 mmol/L (3.5-5.1)
--- NOTE | 2021-08-06 07:09 | EKG ---
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1960 Requested By: Lizeth Olvera Order Number: [id number] MD: Bill Will Measurements Intervals [place] Rate: 125 P: 61 IA: 152 QRS: -51 QRSD: 77 T: 77 QT: 320 QTc: 462 Interpretive Statements Sinus tachycardia Abnormal R-wave progression, late transition Inferior infarct, old Compared to ECG 07/15/2021 15:38:35 No significant change was found Electronically Signed On 08-06-2021 7:09:40 CDT by Bill Will [email or web address] <ELECTRONICALLY SIGNED> By: Bill Will MD, [facility] 08/06/21 0709 D: 10/1709 09 Bill Will MD, FACC /EPI
[2021-08-06 07:23] VITALS: BP 137/86
[2021-08-06 15:19] VITALS: BP 137/85
--- NOTE | 2021-08-06 18:19 | NUR ---
RN ASSUMED PT'S CARE AT 0700AM, PT IS A&OX4, PT IS ON O2 2L/MIN/NC, PT'S O2SAT AND VS ARE STABLE AT DAY SHIFT, PT'S ALCOHOL WITHDRAWAL ASSESSMNET IS 5-7, PT 'S ANXIEY CAN CONTROL BY MEDICATION, PT 'S SOB HAS IMPROVED,PT GETS UP TO BSC WITHOUT ASSIST.
[2021-08-06 19:12] VITALS: BP 121/74
[2021-08-07 04:43] VITALS: BP 131/73
--- NOTE | 2021-08-07 05:25 | NUR ---
PT ALERT AND ORIENTED X 4. PT ON 2L O2 NC. VITAL SIGNS STABLE OVERNIGHT. PT'S ALCOHOL WITHDRAWL ASSESSMENT Q4 WAS 5. WILL CONTINUE TO MONITOR.
[2021-08-07 07:09] VITALS: BP 141/92
[2021-08-07] MEDS ORDERED: PREDNISONE 20 M20 M1 PO (12:56)
[2021-08-07] MEDS ORDERED: CEFUROXIME500 MG PO (13:08)
[2021-08-07 14:01] VITALS: BP 141/92
--- NOTE | 2021-08-07 14:28 | NUR ---
INITIAL ASSESSMENT/DISCHARGE NOTE: Received consult. YANELIS reviewed chart and spoke with nursing and attending physician. Pt was admitted from home due to exacerbation of COPD. Pt is medically stable for discharge home today. Orders written for home health services. YANELIS met with pt at bedside. Introduced role of SW. Pt is alert/orientated x 4. Pt reports she lives at home. Prior to admission, pt was independent with ADLs. No use of DME. Pt has a nebulizer to use for breathing treatments. No hx of HH services or post-acute placement. Pt has a manager of case, Ajay, through [employer]. Pt states he is aware that she is in the hospital. Pt with hx of ETOH use. Plan is for pt to discharge home when medically stable. YANELIS offered to arrange HH services for pt. Pt declines offer and states she does not need HH at this time. Pt needing transportation home. YANELIS provided cab voucher # [id number] to pt's nurse. YANELIS updated pt's nurse and attending physician of pt declining HH services. No additional SW needs identified at this time. YANELIS is available to assist should needs arise.
--- NOTE | 2021-08-13 15:36 | NUR ---
SW received voice message from pt (phone: [phone]) stating she has been without her medications since she was discharged home on Friday, 08/07. Pt left her meds in the inpt pharmacy. SW spoke with pt via phone. Pt states she called [facility] over the weekend and was told that SW/CM would need to assist. SW also notified by weekend assortment planner. Pt states she is still sick at home and unable to come potato picker the medications. Pt does not have family or friends who are able to assist. Pt has been without her meds since last Friday. SW discussed with Director of Case Mgmt and Risk Management. Pt's meds are able to be delivered to pt at home via [employer]. YANELIS spoke with inpt pharmacy and confirmed meds were there. YANELIS arranged for [employer] gold tooler service to potato picker meds at the inpt pharmacy at [facility] and deliver to pt's home: [address] [place] [address]. [phone] [facility] [id number]. Tracking # [id number] provided. [employer] to call pt upon arrival to allow in, as the building is secured. YANELIS spoke with pt via phone to provide update. YANELIS updated inpt pharmacy and spoke with product manager medical device, Danna, to provide update. Pt's meds to be wrapped so meds cannot be identified by the tank truck driver. No additional SW needs identified at this time, but is available to assist should needs arise.
== END 2021-08-07 14:55 | disposition home or self-care (01) | DRG 189 ==
LOC: ER 17:08 → EROBS 18:55 → 3W 18:55
PROVIDERS: Nurse Practitioner Family; ADMIT Internal Medicine; ATTEND Internal Medicine
DX: J96.21 Acute and chronic respiratory failure with hypoxia (principal); R65.11 Systemic inflammatory response syndrome (SIRS) of non-infectious origin with acute organ dysfunction; J44.1 Chronic obstructive pulmonary disease with (acute) exacerbation; N39.0 Urinary tract infection, site not specified; E87.0 Hyperosmolality and hypernatremia; Z20.822 Contact with and (suspected) exposure to COVID-19; K21.9 Gastro-esophageal reflux disease without esophagitis; I10 Essential (primary) hypertension; F10.129 Alcohol abuse with intoxication, unspecified; M10.9 Gout, unspecified; F41.9 Anxiety disorder, unspecified; F17.210 Nicotine dependence, cigarettes, uncomplicated; Z71.41 Alcohol abuse counseling and surveillance of alcoholic; Z71.6 Tobacco abuse counseling; F31.9 Bipolar disorder, unspecified; Z79.899 Other long term (current) drug therapy
CPT/HCPCS: 10879

== ENCOUNTER 2021-08-15 05:48 | Emergency (ER) | payer OTHER ==
[~2021-08-15] VITALS: Ht 152.4 cm; Wt 72.6 kg
[~2021-08-15 05:48] MED LIST changes: +ADVAIR 250-501 EACH INH; +CEFUROXIME500 MG PO; +COMBIVENT RESPIM4 GM INH; +HYDROXYZINE HCL50 MG PO; +OLANZAPINE15 M1 PO; +PREDNISONE 20 M20 M1 PO; +PROTONIX40 M2 PO; +RESTORIL15 M1 PO; +TEMAZEPAM30 MG PO
[2021-08-15 06:51] LABS: ABSOLUTE NEUTROPHILS 5.1 thou/uL (1.4-8.2); BASOPHILS 1.2 % (0.0-2.0); HEMATOCRIT 49.4 % (37.0-47.0); HEMOGLOBIN 16.5 gm/dL (12.0-15.0); LYMPHOCYTES 25.5 % (24.0-44.0); MCH 29.9 pg (26.0-34.0); MCHC 33.4 g/dL (28.0-37.0); MCV 89.6 fL (80.0-100.0); MONOCYTES 8.3 % (1.0-8.0); PLATELET COUNT 316 thou/uL (150-400); RBC 5.51 mil/uL (4.20-5.00); RDW 15.4 % (10.5-14.5); WBC 8.1 thou/uL (4.0-11.0)
[2021-08-15 07:16] LABS: INR 1.03; PROTIME 11.2 Seconds (10.5-12.1)
[2021-08-15 07:49] LABS: URINE BLOOD NEGATIVE (Negative); URINE CLARITY CLEAR; URINE COLOR YELLOW; URINE GLUCOSE-RANDOM* NEGATIVE (Negative); URINE KETONES 1+ (Negative); URINE LEUKOCYTES-REFLEX NEGATIVE (Negative); URINE NITRITE-REFLEX NEGATIVE (Negative); URINE PROTEIN (DIPSTICK) NEGATIVE (Negative); URINE UROBILINOGEN 0.2 E.U./dl (0.2-1.0)
[2021-08-15 07:52] LABS: ICTOTEST (BILI CONFIRMATORY) Negative (Negative); URINE BILIRUBIN NEGATIVE (Negative)
[2021-08-15 08:30] LABS: ANION GAP 1 mmol/L (7-16); BUN 11 mg/dL (7-18); CALCIUM 9.6 mg/dL (8.5-10.1); CHLORIDE 104 mmol/L (98-107); CO2 31 mmol/L (21-32); CREATININE 0.6 mg/dL (0.6-1.0); GLUCOSE 101 mg/dL (74-106); POTASSIUM 4.2 mmol/L (3.5-5.1); SODIUM 136 mmol/L (136-145)
--- NOTE | 2021-08-15 08:34 | EKG ---
[place] [address] [facility] [place] [address] ELECTROCARDIOGRAM REPORT Name: NITZA GRAY Room #: REG SHILO Yuen#: [id number] Admission: 08/15/21 Attend Phys: Discharge: Date of : 62 Report #: [id number] 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 08/15/21 0834 0611 0611 Bill Will MD, FAC /EPI
[2021-08-15 08:41] LABS: ALBUMIN 1.6 g/dL (3.4-5.0); DIRECT BILIRUBIN < 0.1 mg/dL (<0.1-0.2); LIPASE 71 U/L (73-393); MAGNESIUM 1.7 mg/dL (1.8-2.4); SALICYLATE 3.1 mg/dL (2.8-20.0); SGOT 17 U/L (15-37); SGPT 18 U/L (14-59); TOTAL BILIRUBIN 0.3 mg/dL (0.2-1.0); TOTAL PROTEIN 7.3 g/dL (6.4-8.2)
[2021-08-15 10:04] VITALS: BP 129/83
== END 2021-08-15 10:53 | disposition home or self-care (01) ==
LOC: ER 05:48
PROVIDERS: Student in an Organized Health Care Education/Training Program
DX: R52 Pain, unspecified (principal); Z20.822 Contact with and (suspected) exposure to COVID-19; K21.9 Gastro-esophageal reflux disease without esophagitis; F41.9 Anxiety disorder, unspecified; J44.9 Chronic obstructive pulmonary disease, unspecified; M10.9 Gout, unspecified; I10 Essential (primary) hypertension; F31.9 Bipolar disorder, unspecified; F17.210 Nicotine dependence, cigarettes, uncomplicated; Z79.891 Long term (current) use of opiate analgesic; Z79.1 Long term (current) use of non-steroidal anti-inflammatories (NSAID); Z79.899 Other long term (current) drug therapy

== ENCOUNTER 2021-10-27 13:34 | Emergency (ER) | payer OTHER ==
[~2021-10-27] VITALS: Ht 152.4 cm; Wt 72.6 kg
[2021-10-27 13:35] VITALS: BP 132/87
== END 2021-10-27 14:18 | disposition home or self-care (01) ==
LOC: ER 13:34
DX: M25.552 Pain in left hip (principal); M25.551 Pain in right hip; K21.9 Gastro-esophageal reflux disease without esophagitis; F41.9 Anxiety disorder, unspecified; J44.9 Chronic obstructive pulmonary disease, unspecified; F15.10 Other stimulant abuse, uncomplicated; M10.9 Gout, unspecified; I10 Essential (primary) hypertension; F31.9 Bipolar disorder, unspecified; F17.210 Nicotine dependence, cigarettes, uncomplicated; Z79.51 Long term (current) use of inhaled steroids; Z79.899 Other long term (current) drug therapy